=== PATIENT | female | born 1970 | race African-American/Black ===

== ENCOUNTER 2016-10-08 16:22 | Outpatient (CLI) | payer OTHER ==
[~2016-10-08] VITALS: Ht 175.3 cm; Wt 63.2 kg
[~2016-10-08 16:22] MED LIST: IRON325 M1 PO; MULTIPLE VITAMI1 CAP PO; TYSABRI20 MG/ML IV
[2016-10-08 17:00] VITALS: BP 117/66; PULSE 66; TEMP 97.5
[2016-10-08 17:07] LABS: BASO % 0.4 % (0.0-2.0); EOS # 0.1 (0.0-0.7); GRAN # 1.4 (1.4-6.5); GRAN % 30.2 % (42.2-75.2); LYMPH # 2.2 (1.2-3.4); LYMPH % 48.6 % (20.0-51.0); MEAN CELL VOLUME 85 fl (80.0-100.0); MEAN CORPUSCULAR HGB CONC 31 g/dl (33.0-37.0); MONO # 0.8 (0.1-0.6); MONO % 18.4 % (1.7-9.3); PLATELET COUNT 202 K/mm3 (130-400); RED BLOOD COUNT 3.64 M/mm3 (4.10-5.30); REDCELL DISTRIBUTION WIDTH-CV 14.4 % (11.5-14.5); WHITE BLOOD COUNT 4.5 K/mm3 (4.8-10.8)
[2016-10-08 17:08] LABS: HEMATOCRIT 30.9 % (37.0-47.0); HEMOGLOBIN 9.6 g/dl (12.5-16.0); MEAN CORPUSCULAR HEMOGLOBIN 26 pg (27.0-31.0)
[2016-10-08 17:20] LABS: ADJUSTED CALCIUM 9.2 mg/dL (8.4-10.2); ALBUMIN 3.9 gm/dL (3.5-5.0); BILIRUBIN,TOTAL 0.8 mg/dL (0.0-1.0); CALCIUM 9.1 mg/dL (8.4-10.2); CREATININE, serum 0.67 mg/dL (0.52-1.25); POTASSIUM 4.1 mmol/L (3.4-5.0); TOTAL PROTEIN 6.9 gm/dL (6.4-8.2)
== END 2016-10-08 18:54 | disposition home or self-care (01) ==
LOC: EUO 16:22
PROVIDERS: Psychiatry & Neurology Neurology
DX: G35 Multiple sclerosis (principal)
CPT/HCPCS: J2323; J7050

== ENCOUNTER 2016-11-05 16:27 | Outpatient (CLI) | payer OTHER ==
[~2016-11-05] VITALS: Ht 175.3 cm; Wt 66.3 kg
[2016-11-05 17:16] LABS: MEAN CELL VOLUME 85 fl (80.0-100.0); MEAN CORPUSCULAR HGB CONC 30 g/dl (33.0-37.0); PLATELET COUNT 250 K/mm3 (130-400); RED BLOOD COUNT 3.73 M/mm3 (4.10-5.30); REDCELL DISTRIBUTION WIDTH-CV 14.8 % (11.5-14.5); WHITE BLOOD COUNT 5.2 K/mm3 (4.8-10.8)
[2016-11-05 17:18] LABS: HEMATOCRIT 31.6 % (37.0-47.0); HEMOGLOBIN 9.5 g/dl (12.5-16.0); MEAN CORPUSCULAR HEMOGLOBIN 25 pg (27.0-31.0)
[2016-11-05 17:19] LABS: ADD PATHOLOGY DIFF REVIEW NO
[2016-11-05 17:26] LABS: ADJUSTED CALCIUM 9.2 mg/dL (8.4-10.2); ALBUMIN 4.1 gm/dL (3.5-5.0); BILIRUBIN,TOTAL 0.7 mg/dL (0.0-1.0); CALCIUM 9.3 mg/dL (8.4-10.2); CREATININE, serum 0.72 mg/dL (0.52-1.25); POTASSIUM 4.2 mmol/L (3.4-5.0); TOTAL PROTEIN 7.3 gm/dL (6.4-8.2)
[2016-11-05 17:41] VITALS: BP 122/53; PULSE 70; TEMP 98.4
[2016-11-05 17:50] LABS: BAND 4 % (0-10); EOSINOPHIL 3 % (0-4); NEUTROPHILS 30 % (42.0-75.2); PLATELET ESTIMATE NORMAL (NORMAL); TOTAL CELLS COUNTED 100
== END 2016-11-05 18:41 | disposition home or self-care (01) ==
LOC: EUO 16:27
PROVIDERS: Psychiatry & Neurology Neurology
DX: G35 Multiple sclerosis (principal)
CPT/HCPCS: J2323

== ENCOUNTER → 2016-12-05 | Outpatient (CLI) | payer OTHER ==
[~2016-12-05] VITALS: Ht 175.3 cm; Wt 64.0 kg
[2016-12-05 14:15] LABS: BASO # 0.1 (0.0-0.2); EOS # 0.1 (0.0-0.7); EOS % 1.6 % (0-4.0); GRAN # 1.6 (1.4-6.5); GRAN % 31.3 % (42.2-75.2); LYMPH # 2.5 (1.2-3.4); LYMPH % 49.9 % (20.0-51.0); MEAN CELL VOLUME 83 fl (80.0-100.0); MEAN CORPUSCULAR HGB CONC 30 g/dl (33.0-37.0); MEAN PLATELET VOLUME 10.8 fl (7.4-10.4); MONO # 0.8 (0.1-0.6); PLATELET COUNT 364 K/mm3 (130-400); RED BLOOD COUNT 4.08 M/mm3 (4.10-5.30); REDCELL DISTRIBUTION WIDTH-CV 15.1 % (11.5-14.5)
[2016-12-05 14:16] LABS: HEMATOCRIT 33.9 % (37.0-47.0); HEMOGLOBIN 10.2 g/dl (12.5-16.0); MEAN CORPUSCULAR HEMOGLOBIN 25 pg (27.0-31.0)
[2016-12-05 14:24] LABS: BILIRUBIN,TOTAL 0.8 mg/dL (0.0-1.0); CREATININE, serum 0.64 mg/dL (0.52-1.25); POTASSIUM 3.6 mmol/L (3.4-5.0); TOTAL PROTEIN 7.5 gm/dL (6.4-8.2)
[2016-12-05 14:54] VITALS: BP 111/67; PULSE 86; TEMP 97.7
== END ==
LOC: EUO 12-03 16:00
PROVIDERS: Psychiatry & Neurology Neurology
DX: K50.90 Crohn's disease, unspecified, without complications (principal); G35 Multiple sclerosis
CPT/HCPCS: J2323; J7050

== ENCOUNTER 2016-12-31 16:23 | Outpatient (CLI) | payer OTHER ==
[~2016-12-31] VITALS: Ht 175.3 cm; Wt 65.9 kg
[2016-12-31 16:45] LABS: BASO % 0.5 % (0.0-2.0); EOS # 0.1 (0.0-0.7); EOS % 1.3 % (0-4.0); GRAN # 2.5 (1.4-6.5); GRAN % 39.6 % (42.2-75.2); LYMPH # 2.6 (1.2-3.4); LYMPH % 41.1 % (20.0-51.0); MEAN CELL VOLUME 82 fl (80.0-100.0); MEAN CORPUSCULAR HGB CONC 30 g/dl (33.0-37.0); MEAN PLATELET VOLUME 11.2 fl (7.4-10.4); MONO # 1.1 (0.1-0.6); MONO % 17.3 % (1.7-9.3); PLATELET COUNT 260 K/mm3 (130-400); RED BLOOD COUNT 3.84 M/mm3 (4.10-5.30); REDCELL DISTRIBUTION WIDTH-CV 15.9 % (11.5-14.5); WHITE BLOOD COUNT 6.2 K/mm3 (4.8-10.8)
[2016-12-31 16:47] LABS: HEMATOCRIT 31.4 % (37.0-47.0); HEMOGLOBIN 9.4 g/dl (12.5-16.0); MEAN CORPUSCULAR HEMOGLOBIN 24 pg (27.0-31.0)
[2016-12-31 16:55] LABS: ADJUSTED CALCIUM 9.2 mg/dL (8.4-10.2); ALBUMIN 4.4 gm/dL (3.5-5.0); BILIRUBIN,TOTAL 0.8 mg/dL (0.0-1.0); CALCIUM 9.5 mg/dL (8.4-10.2); CREATININE, serum 0.66 mg/dL (0.52-1.25); POTASSIUM 4.2 mmol/L (3.4-5.0); TOTAL PROTEIN 7.2 gm/dL (6.4-8.2)
[2016-12-31 18:16] VITALS: BP 108/59; PULSE 54; TEMP 98.2
== END 2016-12-31 19:13 | disposition home or self-care (01) ==
LOC: EUO 16:23
PROVIDERS: Psychiatry & Neurology Neurology
DX: G35 Multiple sclerosis (principal)
CPT/HCPCS: J2323

== ENCOUNTER 2017-01-28 16:33 | Outpatient (CLI) | payer OTHER ==
[~2017-01-28] VITALS: Ht 175.3 cm; Wt 65.0 kg
[2017-01-28 17:04] LABS: ADJUSTED CALCIUM 9.2 mg/dL (8.4-10.2); ALBUMIN 3.9 gm/dL (3.5-5.0); BILIRUBIN,TOTAL 0.6 mg/dL (0.0-1.0); CALCIUM 9.1 mg/dL (8.4-10.2); CREATININE, serum 0.71 mg/dL (0.52-1.25)
[2017-01-28 17:05] LABS: BASO % 0.6 % (0.0-2.0); EOS # 0.1 (0.0-0.7); EOS % 1.3 % (0-4.0); GRAN # 1.7 (1.4-6.5); GRAN % 31.1 % (42.2-75.2); LYMPH # 2.7 (1.2-3.4); LYMPH % 49.4 % (20.0-51.0); MEAN CELL VOLUME 81 fl (80.0-100.0); MEAN CORPUSCULAR HGB CONC 30 g/dl (33.0-37.0); MEAN PLATELET VOLUME 10.7 fl (7.4-10.4); MONO # 0.9 (0.1-0.6); MONO % 17.2 % (1.7-9.3); PLATELET COUNT 310 K/mm3 (130-400); RED BLOOD COUNT 3.78 M/mm3 (4.10-5.30); REDCELL DISTRIBUTION WIDTH-CV 15.9 % (11.5-14.5); WHITE BLOOD COUNT 5.4 K/mm3 (4.8-10.8)
[2017-01-28 17:06] LABS: HEMATOCRIT 30.5 % (37.0-47.0); HEMOGLOBIN 9.2 g/dl (12.5-16.0); MEAN CORPUSCULAR HEMOGLOBIN 24 pg (27.0-31.0)
[2017-01-28 18:08] VITALS: BP 123/95; PULSE 55; TEMP 98.1
== END 2017-01-28 19:12 | disposition home or self-care (01) ==
LOC: EUO 16:33
PROVIDERS: Psychiatry & Neurology Neurology
DX: G35 Multiple sclerosis (principal)
CPT/HCPCS: J2323; J7050

== ENCOUNTER 2017-02-25 14:11 | Outpatient (CLI) | payer OTHER ==
[~2017-02-25] VITALS: Ht 175.3 cm; Wt 64.5 kg
[2017-02-25 15:14] LABS: BASO % 0.6 % (0.0-2.0); EOS # 0.1 (0.0-0.7); GRAN # 3.2 (1.4-6.5); LYMPH # 2.3 (1.2-3.4); LYMPH % 33.4 % (20.0-51.0); MEAN CELL VOLUME 83 fl (80.0-100.0); MEAN CORPUSCULAR HGB CONC 30 g/dl (33.0-37.0); MONO # 1.2 (0.1-0.6); MONO % 17.6 % (1.7-9.3); PLATELET COUNT 201 K/mm3 (130-400); RED BLOOD COUNT 4.47 M/mm3 (4.10-5.30); REDCELL DISTRIBUTION WIDTH-CV 21.2 % (11.5-14.5); WHITE BLOOD COUNT 6.9 K/mm3 (4.8-10.8)
[2017-02-25 15:23] LABS: HEMATOCRIT 36.9 % (37.0-47.0); HEMOGLOBIN 11.1 g/dl (12.5-16.0); MEAN CORPUSCULAR HEMOGLOBIN 25 pg (27.0-31.0)
[2017-02-25 15:25] LABS: ALBUMIN 4.6 gm/dL (3.5-5.0); BILIRUBIN,TOTAL 1.3 mg/dL (0.0-1.0); CALCIUM 9.5 mg/dL (8.4-10.2); CREATININE, serum 0.79 mg/dL (0.52-1.25); POTASSIUM 3.7 mmol/L (3.4-5.0)
[2017-02-25 16:01] VITALS: BP 123/74; PULSE 51; TEMP 97.9
== END 2017-02-25 17:04 | disposition home or self-care (01) ==
LOC: EUO 14:11
PROVIDERS: Psychiatry & Neurology Neurology
DX: G35 Multiple sclerosis (principal)
CPT/HCPCS: J2323

== ENCOUNTER 2017-03-26 14:09 | Outpatient (CLI) | payer OTHER ==
[2017-03-26 14:41] LABS: BASO % 0.6 % (0.0-2.0); EOS # 0.1 (0.0-0.7); GRAN # 1.8 (1.4-6.5); GRAN % 33.2 % (42.2-75.2); LYMPH # 2.7 (1.2-3.4); LYMPH % 51.9 % (20.0-51.0); MEAN CELL VOLUME 86 fl (80.0-100.0); MEAN CORPUSCULAR HGB CONC 31 g/dl (33.0-37.0); MONO # 0.7 (0.1-0.6); MONO % 13.1 % (1.7-9.3); PLATELET COUNT 173 K/mm3 (130-400); RED BLOOD COUNT 4.27 M/mm3 (4.10-5.30); REDCELL DISTRIBUTION WIDTH-CV 22.4 % (11.5-14.5); WHITE BLOOD COUNT 5.3 K/mm3 (4.8-10.8)
[2017-03-26 14:43] LABS: HEMATOCRIT 36.8 % (37.0-47.0); HEMOGLOBIN 11.5 g/dl (12.5-16.0); MEAN CORPUSCULAR HEMOGLOBIN 27 pg (27.0-31.0)
[2017-03-26 14:55] LABS: ADJUSTED CALCIUM 9.2 mg/dL (8.4-10.2); ALBUMIN 4.6 gm/dL (3.5-5.0); BILIRUBIN,TOTAL 0.9 mg/dL (0.0-1.0); CALCIUM 9.7 mg/dL (8.4-10.2); CREATININE, serum 0.73 mg/dL (0.52-1.25); POTASSIUM 3.7 mmol/L (3.4-5.0); TOTAL PROTEIN 7.7 gm/dL (6.4-8.2)
[2017-03-26 15:22] VITALS: BP 118/71; PULSE 53; TEMP 98.2
== END 2017-03-26 16:32 | disposition home or self-care (01) ==
LOC: EUO 14:09
PROVIDERS: Psychiatry & Neurology Neurology
DX: G35 Multiple sclerosis (principal); Z79.899 Other long term (current) drug therapy
CPT/HCPCS: J2323

== ENCOUNTER 2017-04-23 13:30 | Outpatient (CLI) | payer OTHER ==
[~2017-04-23] VITALS: Ht 175.3 cm; Wt 64.0 kg
[2017-04-23 14:03] LABS: BASO % 0.6 % (0.0-2.0); EOS % 0.5 % (0-4.0); GRAN # 3.1 (1.4-6.5); GRAN % 47.5 % (42.2-75.2); LYMPH # 2.5 (1.2-3.4); LYMPH % 38.1 % (20.0-51.0); MEAN CELL VOLUME 87 fl (80.0-100.0); MEAN CORPUSCULAR HGB CONC 31 g/dl (33.0-37.0); MEAN PLATELET VOLUME 11.2 fl (7.4-10.4); MONO # 0.9 (0.1-0.6); PLATELET COUNT 201 K/mm3 (130-400); RED BLOOD COUNT 4.21 M/mm3 (4.10-5.30); REDCELL DISTRIBUTION WIDTH-CV 20.1 % (11.5-14.5); WHITE BLOOD COUNT 6.6 K/mm3 (4.8-10.8)
[2017-04-23 14:04] LABS: HEMATOCRIT 36.5 % (37.0-47.0); HEMOGLOBIN 11.4 g/dl (12.5-16.0); MEAN CORPUSCULAR HEMOGLOBIN 27 pg (27.0-31.0)
[2017-04-23 14:08] LABS: ALBUMIN 4.6 gm/dL (3.5-5.0); BILIRUBIN,TOTAL 0.9 mg/dL (0.0-1.0); CALCIUM 9.5 mg/dL (8.4-10.2); CREATININE, serum 0.73 mg/dL (0.52-1.25); POTASSIUM 3.5 mmol/L (3.4-5.0); TOTAL PROTEIN 7.5 gm/dL (6.4-8.2)
[2017-04-23 14:40] VITALS: BP 119/67; PULSE 61; TEMP 98.5
== END 2017-04-23 16:00 | disposition home or self-care (01) ==
LOC: EUO 13:30
PROVIDERS: Psychiatry & Neurology Neurology
DX: G35 Multiple sclerosis (principal); Z79.899 Other long term (current) drug therapy
CPT/HCPCS: J2323; J7050

== ENCOUNTER 2017-05-23 16:31 | Outpatient (CLI) | payer OTHER ==
[~2017-05-23] VITALS: Ht 175.3 cm; Wt 63.2 kg
[2017-05-23 17:00] VITALS: BP 125/66; PULSE 63; TEMP 98.3
[2017-05-23 17:02] LABS: BASO % 0.6 % (0.0-2.0); EOS % 0.8 % (0-4.0); GRAN # 1.4 (1.4-6.5); GRAN % 28.5 % (42.2-75.2); LYMPH # 2.5 (1.2-3.4); MEAN CELL VOLUME 87 fl (80.0-100.0); MEAN CORPUSCULAR HGB CONC 32 g/dl (33.0-37.0); MEAN PLATELET VOLUME 11.8 fl (7.4-10.4); MONO % 19.9 % (1.7-9.3); PLATELET COUNT 205 K/mm3 (130-400); RED BLOOD COUNT 3.98 M/mm3 (4.10-5.30); REDCELL DISTRIBUTION WIDTH-CV 16.6 % (11.5-14.5)
[2017-05-23 17:03] LABS: HEMATOCRIT 34.7 % (37.0-47.0); HEMOGLOBIN 11.2 g/dl (12.5-16.0); MEAN CORPUSCULAR HEMOGLOBIN 28 pg (27.0-31.0)
[2017-05-23 17:13] LABS: ADJUSTED CALCIUM 8.7 mg/dL (8.4-10.2); ALBUMIN 4.4 gm/dL (3.5-5.0); CREATININE, serum 0.77 mg/dL (0.52-1.25); POTASSIUM 4.2 mmol/L (3.4-5.0); TOTAL PROTEIN 7.4 gm/dL (6.4-8.2)
== END 2017-05-23 18:21 | disposition home or self-care (01) ==
LOC: EUO 16:31
PROVIDERS: Psychiatry & Neurology Neurology
DX: G35 Multiple sclerosis (principal)
CPT/HCPCS: J2323

== ENCOUNTER → 2017-06-23 | Outpatient (CLI) | payer OTHER ==
[~2017-06-23] VITALS: Ht 175.3 cm; Wt 61.5 kg
[~2017-06-23] MED LIST changes: +VITAMIN C500 MG PO
[2017-06-23 16:36] LABS: BASO % 0.7 % (0.0-2.0); EOS % 0.9 % (0-4.0); GRAN # 1.8 (1.4-6.5); GRAN % 39.8 % (42.2-75.2); LYMPH % 43.4 % (20.0-51.0); MEAN CELL VOLUME 90 fl (80.0-100.0); MEAN CORPUSCULAR HGB CONC 31 g/dl (33.0-37.0); MEAN PLATELET VOLUME 10.8 fl (7.4-10.4); MONO # 0.7 (0.1-0.6); MONO % 14.5 % (1.7-9.3); PLATELET COUNT 305 K/mm3 (130-400); RED BLOOD COUNT 3.77 M/mm3 (4.10-5.30); REDCELL DISTRIBUTION WIDTH-CV 14.6 % (11.5-14.5); WHITE BLOOD COUNT 4.6 K/mm3 (4.8-10.8)
[2017-06-23 16:38] LABS: HEMATOCRIT 33.8 % (37.0-47.0); HEMOGLOBIN 10.6 g/dl (12.5-16.0); MEAN CORPUSCULAR HEMOGLOBIN 28 pg (27.0-31.0)
[2017-06-23 16:46] VITALS: BP 120/62; PULSE 58; TEMP 98
[2017-06-23 17:02] LABS: ADJUSTED CALCIUM 9.2 mg/dL (8.4-10.2); ALBUMIN 4.3 gm/dL (3.5-5.0); BILIRUBIN,TOTAL 0.7 mg/dL (0.0-1.0); CALCIUM 9.4 mg/dL (8.4-10.2); CREATININE, serum 0.76 mg/dL (0.52-1.25); POTASSIUM 3.8 mmol/L (3.4-5.0); TOTAL PROTEIN 7.5 gm/dL (6.4-8.2)
== END ==
LOC: EUO 16:00
PROVIDERS: Psychiatry & Neurology Neurology
DX: G35 Multiple sclerosis (principal); Z79.899 Other long term (current) drug therapy
CPT/HCPCS: J2323; J7050

== ENCOUNTER 2017-07-21 16:05 | Outpatient (CLI) | payer OTHER ==
[~2017-07-21] VITALS: Ht 175.3 cm; Wt 62.2 kg
[2017-07-21 16:32] LABS: BASO % 0.7 % (0.0-2.0); EOS % 0.5 % (0-4.0); GRAN # 2.4 (1.4-6.5); GRAN % 44.3 % (42.2-75.2); LYMPH # 2.2 (1.2-3.4); LYMPH % 39.3 % (20.0-51.0); MEAN CELL VOLUME 90 fl (80.0-100.0); MEAN CORPUSCULAR HGB CONC 31 g/dl (33.0-37.0); MEAN PLATELET VOLUME 11.2 fl (7.4-10.4); MONO # 0.8 (0.1-0.6); PLATELET COUNT 244 K/mm3 (130-400); RED BLOOD COUNT 3.71 M/mm3 (4.10-5.30); WHITE BLOOD COUNT 5.5 K/mm3 (4.8-10.8)
[2017-07-21 16:37] LABS: ALBUMIN 4.3 gm/dL (3.5-5.0); CALCIUM 9.2 mg/dL (8.4-10.2); CREATININE, serum 0.85 mg/dL (0.52-1.25); POTASSIUM 3.5 mmol/L (3.4-5.0); TOTAL PROTEIN 7.4 gm/dL (6.4-8.2)
[2017-07-21 16:49] LABS: HEMATOCRIT 33.5 % (37.0-47.0); HEMOGLOBIN 10.3 g/dl (12.5-16.0); MEAN CORPUSCULAR HEMOGLOBIN 28 pg (27.0-31.0)
[2017-07-21 17:00] VITALS: BP 116/74; PULSE 57; TEMP 97.8
== END 2017-07-21 18:16 | disposition home or self-care (01) ==
LOC: EUO 16:05
PROVIDERS: Psychiatry & Neurology Neurology
DX: G35 Multiple sclerosis (principal); Z79.899 Other long term (current) drug therapy
CPT/HCPCS: J2323; J7050

== ENCOUNTER → 2017-08-18 | Outpatient (CLI) | payer OTHER ==
[2017-08-18 16:39] LABS: BASO % 0.7 % (0.0-2.0); EOS # 0.1 (0.0-0.7); GRAN # 2.3 (1.4-6.5); GRAN % 39.1 % (42.2-75.2); LYMPH # 2.3 (1.2-3.4); LYMPH % 39.8 % (20.0-51.0); MEAN CELL VOLUME 89 fl (80.0-100.0); MEAN CORPUSCULAR HGB CONC 31 g/dl (33.0-37.0); MEAN PLATELET VOLUME 11.3 fl (7.4-10.4); MONO # 1.1 (0.1-0.6); MONO % 19.1 % (1.7-9.3); PLATELET COUNT 241 K/mm3 (130-400); RED BLOOD COUNT 3.55 M/mm3 (4.10-5.30); WHITE BLOOD COUNT 5.9 K/mm3 (4.8-10.8)
[2017-08-18 16:42] LABS: ADJUSTED CALCIUM 9.1 mg/dL (8.4-10.2); ALBUMIN 4.3 gm/dL (3.5-5.0); BILIRUBIN,TOTAL 0.8 mg/dL (0.0-1.0); CALCIUM 9.3 mg/dL (8.4-10.2); CREATININE, serum 0.76 mg/dL (0.52-1.25); POTASSIUM 4.1 mmol/L (3.4-5.0)
[2017-08-18 16:46] LABS: HEMATOCRIT 31.5 % (37.0-47.0); HEMOGLOBIN 9.6 g/dl (12.5-16.0); MEAN CORPUSCULAR HEMOGLOBIN 27 pg (27.0-31.0)
== END ==
LOC: EUO 16:00
PROVIDERS: Psychiatry & Neurology Neurology
DX: G35 Multiple sclerosis (principal)
CPT/HCPCS: J2323

== ENCOUNTER 2017-08-28 16:20 | Outpatient (CLI) | payer OTHER ==
[~2017-08-28] VITALS: Ht 175.3 cm; Wt 65.0 kg
[2017-08-28 16:58] LABS: MEAN CELL VOLUME 87 fl (80.0-100.0); MEAN CORPUSCULAR HGB CONC 31 g/dl (33.0-37.0); MEAN PLATELET VOLUME 11.9 fl (7.4-10.4); PLATELET COUNT 215 K/mm3 (130-400); WHITE BLOOD COUNT 8.3 K/mm3 (4.8-10.8)
[2017-08-28 17:04] LABS: ADD PATHOLOGY DIFF REVIEW NO; HEMATOCRIT 34.8 % (37.0-47.0); HEMOGLOBIN 10.7 g/dl (12.5-16.0); MEAN CORPUSCULAR HEMOGLOBIN 27 pg (27.0-31.0)
[2017-08-28 17:11] LABS: ADJUSTED CALCIUM 6.4 mg/dL (8.4-10.2); ALBUMIN 4.9 gm/dL (3.5-5.0); BILIRUBIN,TOTAL 0.9 mg/dL (0.0-1.0); CALCIUM 7.1 mg/dL (8.4-10.2); CREATININE, serum 0.71 mg/dL (0.52-1.25); POTASSIUM 5.7 mmol/L (3.4-5.0); TOTAL PROTEIN 7.8 gm/dL (6.4-8.2)
[2017-08-28 17:19] LABS: BAND 3 % (0-10); BASOPHIL 1 % (0-2); EOSINOPHIL 1 % (0-4); HYPOCHROMIA 1+; LYMPHOCYTE 20 % (20.0-51.0); NEUTROPHILS 60 % (42.0-75.2); PLATELET ESTIMATE NORMAL (NORMAL); TOTAL CELLS COUNTED 100
== END 2017-08-28 18:51 | disposition home or self-care (01) ==
LOC: EUO 16:20
PROVIDERS: Psychiatry & Neurology Neurology
DX: G35 Multiple sclerosis (principal); Z79.899 Other long term (current) drug therapy
CPT/HCPCS: J2323; J7050

== ENCOUNTER 2017-09-25 16:07 | Outpatient (CLI) | payer OTHER ==
[2017-09-25 16:26] LABS: BASO % 0.7 % (0.0-2.0); EOS # 0.1 (0.0-0.7); EOS % 1.1 % (0-4.0); GRAN % 35.1 % (42.2-75.2); HEMATOCRIT 35.1 % (37.0-47.0); HEMOGLOBIN 10.6 g/dl (12.5-16.0); LYMPH # 2.6 (1.2-3.4); LYMPH % 46.5 % (20.0-51.0); MEAN CELL VOLUME 86 fl (80.0-100.0); MEAN CORPUSCULAR HEMOGLOBIN 26 pg (27.0-31.0); MEAN CORPUSCULAR HGB CONC 30 g/dl (33.0-37.0); MEAN PLATELET VOLUME 11.6 fl (7.4-10.4); MONO # 0.9 (0.1-0.6); MONO % 16.1 % (1.7-9.3); PLATELET COUNT 193 K/mm3 (130-400); REDCELL DISTRIBUTION WIDTH-CV 15.6 % (11.5-14.5)
[2017-09-25 16:30] VITALS: BP 142/67; PULSE 117; TEMP 98.1
[2017-09-25 16:35] LABS: ALBUMIN 4.6 gm/dL (3.5-5.0); BILIRUBIN,TOTAL 0.7 mg/dL (0.0-1.0); CALCIUM 9.5 mg/dL (8.4-10.2); CREATININE, serum 0.77 mg/dL (0.52-1.25); POTASSIUM 4.1 mmol/L (3.4-5.0); TOTAL PROTEIN 7.7 gm/dL (6.4-8.2)
== END 2017-09-25 18:36 | disposition home or self-care (01) ==
LOC: EUO 16:07
PROVIDERS: Psychiatry & Neurology Neurology
DX: G35 Multiple sclerosis (principal)
CPT/HCPCS: J2323; J7050

== ENCOUNTER 2017-11-20 16:20 | Outpatient (CLI) | payer OTHER ==
[~2017-11-20] VITALS: Ht 175.3 cm; Wt 64.1 kg
[2017-11-20 16:45] LABS: BASO % 0.8 % (0.0-2.0); EOS # 0.1 (0.0-0.7); EOS % 1.2 % (0-4.0); GRAN # 1.8 (1.4-6.5); GRAN % 35.2 % (42.2-75.2); LYMPH # 2.4 (1.2-3.4); LYMPH % 46.6 % (20.0-51.0); MEAN CELL VOLUME 85 fl (80.0-100.0); MEAN CORPUSCULAR HGB CONC 31 g/dl (33.0-37.0); MEAN PLATELET VOLUME 11.4 fl (7.4-10.4); MONO # 0.8 (0.1-0.6); PLATELET COUNT 241 K/mm3 (130-400); RED BLOOD COUNT 3.83 M/mm3 (4.10-5.30)
[2017-11-20 16:51] LABS: ALBUMIN 4.6 gm/dL (3.5-5.0); BILIRUBIN,TOTAL 0.7 mg/dL (0.0-1.0); CALCIUM 9.3 mg/dL (8.4-10.2); CREATININE, serum 0.74 mg/dL (0.52-1.25); POTASSIUM 3.7 mmol/L (3.4-5.0); TOTAL PROTEIN 7.5 gm/dL (6.4-8.2)
[2017-11-20 17:06] LABS: HEMATOCRIT 32.4 % (37.0-47.0); HEMOGLOBIN 9.9 g/dl (12.5-16.0); MEAN CORPUSCULAR HEMOGLOBIN 26 pg (27.0-31.0)
[2017-11-20 17:28] VITALS: BP 117/62; PULSE 61; TEMP 98.2
== END 2017-11-20 18:40 | disposition home or self-care (01) ==
LOC: EUO 16:20
PROVIDERS: Psychiatry & Neurology Neurology
DX: G35 Multiple sclerosis (principal); Z79.899 Other long term (current) drug therapy
CPT/HCPCS: J2323; J7050

== ENCOUNTER → 2017-12-18 | Outpatient (CLI) | payer OTHER ==
[~2017-12-18] VITALS: Ht 175.3 cm; Wt 62.7 kg
[2017-12-18 16:54] LABS: BASO % 0.2 % (0.0-2.0); EOS # 0.1 (0.0-0.7); EOS % 1.9 % (0-4.0); GRAN # 1.2 (1.4-6.5); GRAN % 29.2 % (42.2-75.2); LYMPH # 1.8 (1.2-3.4); LYMPH % 41.7 % (20.0-51.0); MEAN CELL VOLUME 83 fl (80.0-100.0); MEAN CORPUSCULAR HGB CONC 30 g/dl (33.0-37.0); MEAN PLATELET VOLUME 10.8 fl (7.4-10.4); MONO # 1.1 (0.1-0.6); MONO % 26.8 % (1.7-9.3); PLATELET COUNT 226 K/mm3 (130-400); RED BLOOD COUNT 3.94 M/mm3 (4.10-5.30); REDCELL DISTRIBUTION WIDTH-CV 15.6 % (11.5-14.5)
[2017-12-18 17:01] LABS: HEMATOCRIT 32.7 % (37.0-47.0); HEMOGLOBIN 9.8 g/dl (12.5-16.0); MEAN CORPUSCULAR HEMOGLOBIN 25 pg (27.0-31.0)
[2017-12-18 17:04] LABS: BILIRUBIN,TOTAL 0.9 mg/dL (0.0-1.0); CALCIUM 8.8 mg/dL (8.4-10.2); CREATININE, serum 0.7 mg/dL (0.52-1.25); POTASSIUM 3.8 mmol/L (3.4-5.0); TOTAL PROTEIN 7.3 gm/dL (6.4-8.2)
== END ==
LOC: EUO 16:00
PROVIDERS: Psychiatry & Neurology Neurology
DX: G35 Multiple sclerosis (principal)
CPT/HCPCS: J2323; J7050

== ENCOUNTER 2018-01-15 16:11 | Outpatient (CLI) | payer OTHER ==
[2018-01-15 16:27] VITALS: BP 115/63; PULSE 55; TEMP 97.9
[2018-01-15 16:40] LABS: BASO % 0.7 % (0.0-2.0); EOS # 0.1 (0.0-0.7); EOS % 1.8 % (0-4.0); GRAN # 2.1 (1.4-6.5); GRAN % 34.2 % (42.2-75.2); HEMATOCRIT 32.4 % (37.0-47.0); HEMOGLOBIN 9.8 g/dl (12.5-16.0); LYMPH # 2.8 (1.2-3.4); LYMPH % 46.6 % (20.0-51.0); MEAN CELL VOLUME 83 fl (80.0-100.0); MEAN CORPUSCULAR HEMOGLOBIN 25 pg (27.0-31.0); MEAN CORPUSCULAR HGB CONC 30 g/dl (33.0-37.0); MEAN PLATELET VOLUME 13.4 fl (7.4-10.4); MONO % 16.4 % (1.7-9.3); PLATELET COUNT 266 K/mm3 (130-400); RED BLOOD COUNT 3.92 M/mm3 (4.10-5.30); REDCELL DISTRIBUTION WIDTH-CV 17.4 % (11.5-14.5)
[2018-01-15 16:58] LABS: ALBUMIN 4.4 gm/dL (3.5-5.0); BILIRUBIN,TOTAL 0.6 mg/dL (0.0-1.0); CALCIUM 9.2 mg/dL (8.4-10.2); CREATININE, serum 0.73 mg/dL (0.52-1.25); POTASSIUM 4.3 mmol/L (3.4-5.0)
== END 2018-01-15 18:02 | disposition home or self-care (01) ==
LOC: EUO 16:11
PROVIDERS: Psychiatry & Neurology Neurology
DX: G35 Multiple sclerosis (principal)
CPT/HCPCS: J2323

== ENCOUNTER → 2018-02-12 | Outpatient (CLI) | payer OTHER ==
[~2018-02-12] VITALS: Ht 175.3 cm; Wt 64.5 kg
[2018-02-12 16:58] LABS: BASO % 0.7 % (0.0-2.0); EOS # 0.1 (0.0-0.7); EOS % 1.8 % (0-4.0); GRAN # 2.3 (1.4-6.5); HEMOGLOBIN 11.6 g/dl (12.5-16.0); LYMPH # 2.7 (1.2-3.4); LYMPH % 43.8 % (20.0-51.0); MEAN CELL VOLUME 87 fl (80.0-100.0); MEAN CORPUSCULAR HEMOGLOBIN 27 pg (27.0-31.0); MEAN CORPUSCULAR HGB CONC 31 g/dl (33.0-37.0); MEAN PLATELET VOLUME 10.9 fl (7.4-10.4); MONO # 0.9 (0.1-0.6); PLATELET COUNT 248 K/mm3 (130-400); RED BLOOD COUNT 4.25 M/mm3 (4.10-5.30); REDCELL DISTRIBUTION WIDTH-CV 21.1 % (11.5-14.5)
[2018-02-12 17:08] LABS: ALBUMIN 4.3 gm/dL (3.5-5.0); BILIRUBIN,TOTAL 0.8 mg/dL (0.0-1.0); CALCIUM 9.7 mg/dL (8.4-10.2); CREATININE, serum 0.76 mg/dL (0.52-1.25); POTASSIUM 3.9 mmol/L (3.4-5.0); TOTAL PROTEIN 8.4 gm/dL (6.4-8.2)
[2018-02-12 18:03] VITALS: BP 117/68; PULSE 53; TEMP 98.2
== END ==
LOC: EUO 16:00
PROVIDERS: Psychiatry & Neurology Neurology
DX: G35 Multiple sclerosis (principal)
CPT/HCPCS: J2323; J7050

== ENCOUNTER 2018-03-12 15:57 | Outpatient (CLI) | payer OTHER ==
[2018-03-12 16:00] VITALS: BP 105/52; PULSE 52; TEMP 97.6
[2018-03-12 16:18] LABS: BASO % 0.6 % (0.0-2.0); EOS # 0.1 (0.0-0.7); EOS % 1.9 % (0-4.0); GRAN # 1.4 (1.4-6.5); GRAN % 28.3 % (42.2-75.2); HEMATOCRIT 40.7 % (37.0-47.0); HEMOGLOBIN 13.2 g/dl (12.5-16.0); LYMPH # 2.7 (1.2-3.4); LYMPH % 55.6 % (20.0-51.0); MEAN CELL VOLUME 88 fl (80.0-100.0); MEAN CORPUSCULAR HEMOGLOBIN 29 pg (27.0-31.0); MEAN CORPUSCULAR HGB CONC 32 g/dl (33.0-37.0); MEAN PLATELET VOLUME 11.5 fl (7.4-10.4); MONO # 0.6 (0.1-0.6); MONO % 13.2 % (1.7-9.3); PLATELET COUNT 197 K/mm3 (130-400); RED BLOOD COUNT 4.63 M/mm3 (4.10-5.30); REDCELL DISTRIBUTION WIDTH-CV 20.9 % (11.5-14.5)
[2018-03-12 16:24] LABS: ALBUMIN 4.7 gm/dL (3.5-5.0); CALCIUM 9.5 mg/dL (8.4-10.2); CREATININE, serum 0.66 mg/dL (0.52-1.25); POTASSIUM 3.9 mmol/L (3.4-5.0)
== END 2018-03-12 18:07 | disposition home or self-care (01) ==
LOC: EUO 15:57
PROVIDERS: Psychiatry & Neurology Neurology
DX: G35 Multiple sclerosis (principal)
CPT/HCPCS: J2323; J7050

== ENCOUNTER → 2018-04-09 | Outpatient (CLI) | payer OTHER ==
[~2018-04-09] VITALS: Ht 175.3 cm; Wt 46.4 kg
[2018-04-09 16:33] VITALS: BP 112/62; PULSE 66; TEMP 97.8
[2018-04-09 17:37] LABS: BASO % 0.6 % (0.0-2.0); EOS # 0.1 (0.0-0.7); GRAN # 1.4 (1.4-6.5); GRAN % 28.5 % (42.2-75.2); HEMATOCRIT 39.5 % (37.0-47.0); HEMOGLOBIN 12.9 g/dl (12.5-16.0); LYMPH # 2.6 (1.2-3.4); LYMPH % 53.6 % (20.0-51.0); MEAN CELL VOLUME 92 fl (80.0-100.0); MEAN CORPUSCULAR HEMOGLOBIN 30 pg (27.0-31.0); MEAN CORPUSCULAR HGB CONC 33 g/dl (33.0-37.0); MEAN PLATELET VOLUME 11.4 fl (7.4-10.4); MONO # 0.8 (0.1-0.6); MONO % 16.1 % (1.7-9.3); PLATELET COUNT 187 K/mm3 (130-400); RED BLOOD COUNT 4.28 M/mm3 (4.10-5.30); REDCELL DISTRIBUTION WIDTH-CV 17.9 % (11.5-14.5)
[2018-04-09 17:49] LABS: ALBUMIN 4.5 gm/dL (3.5-5.0); CALCIUM 9.5 mg/dL (8.4-10.2); CREATININE, serum 0.8 mg/dL (0.52-1.25); POTASSIUM 3.9 mmol/L (3.4-5.0); TOTAL PROTEIN 7.7 gm/dL (6.4-8.2)
== END ==
LOC: EUO 16:00
PROVIDERS: Psychiatry & Neurology Neurology
DX: G35 Multiple sclerosis (principal); Z79.899 Other long term (current) drug therapy
CPT/HCPCS: J2323; J7050

== ENCOUNTER 2018-05-07 16:11 | Outpatient (CLI) | payer OTHER ==
[2018-05-07 16:31] LABS: BASO % 0.6 % (0.0-2.0); EOS # 0.1 (0.0-0.7); EOS % 1.6 % (0-4.0); GRAN # 1.5 (1.4-6.5); GRAN % 29.9 % (42.2-75.2); HEMATOCRIT 37.4 % (37.0-47.0); HEMOGLOBIN 12.5 g/dl (12.5-16.0); LYMPH # 2.7 (1.2-3.4); LYMPH % 53.8 % (20.0-51.0); MEAN CELL VOLUME 94 fl (80.0-100.0); MEAN CORPUSCULAR HEMOGLOBIN 32 pg (27.0-31.0); MEAN CORPUSCULAR HGB CONC 33 g/dl (33.0-37.0); MEAN PLATELET VOLUME 11.1 fl (7.4-10.4); MONO # 0.7 (0.1-0.6); MONO % 13.7 % (1.7-9.3); PLATELET COUNT 198 K/mm3 (130-400); RED BLOOD COUNT 3.97 M/mm3 (4.10-5.30); REDCELL DISTRIBUTION WIDTH-CV 14.7 % (11.5-14.5)
[2018-05-07 16:46] LABS: ALBUMIN 4.4 gm/dL (3.5-5.0); BILIRUBIN,TOTAL 1.3 mg/dL (0.0-1.0); CALCIUM 9.2 mg/dL (8.4-10.2); CREATININE, serum 0.67 mg/dL (0.52-1.25); POTASSIUM 3.6 mmol/L (3.4-5.0); TOTAL PROTEIN 7.6 gm/dL (6.4-8.2)
== END 2018-05-07 18:44 | disposition home or self-care (01) ==
LOC: EUO 16:11
PROVIDERS: Psychiatry & Neurology Neurology
DX: G35 Multiple sclerosis (principal); Z79.899 Other long term (current) drug therapy
CPT/HCPCS: J2323; J7050

== ENCOUNTER 2018-06-04 16:24 | Outpatient (CLI) | payer OTHER ==
[~2018-06-04] VITALS: Ht 175.3 cm; Wt 62.8 kg
[2018-06-04 16:57] LABS: BASO % 0.7 % (0.0-2.0); EOS # 0.1 (0.0-0.7); EOS % 1.6 % (0-4.0); GRAN # 1.3 (1.4-6.5); GRAN % 29.4 % (42.2-75.2); LYMPH # 2.4 (1.2-3.4); LYMPH % 55.3 % (20.0-51.0); MEAN CELL VOLUME 101 fl (80.0-100.0); MEAN CORPUSCULAR HGB CONC 32 g/dl (33.0-37.0); MEAN PLATELET VOLUME 11.2 fl (7.4-10.4); MONO # 0.5 (0.1-0.6); MONO % 12.5 % (1.7-9.3); PLATELET COUNT 156 K/mm3 (130-400); RED BLOOD COUNT 2.88 M/mm3 (4.10-5.30); REDCELL DISTRIBUTION WIDTH-CV 13.3 % (11.5-14.5)
[2018-06-04 17:02] LABS: ALBUMIN 4.1 gm/dL (3.5-5.0); CALCIUM 9.1 mg/dL (8.4-10.2); CREATININE, serum 0.71 mg/dL (0.52-1.25); POTASSIUM 4.2 mmol/L (3.4-5.0); TOTAL PROTEIN 7.3 gm/dL (6.4-8.2)
[2018-06-04 17:10] LABS: HEMATOCRIT 29.1 % (37.0-47.0); HEMOGLOBIN 9.3 g/dl (12.5-16.0); MEAN CORPUSCULAR HEMOGLOBIN 32 pg (27.0-31.0)
[2018-06-04 17:34] VITALS: BP 124/62; PULSE 58; TEMP 97.5
== END 2018-06-04 19:30 | disposition home or self-care (01) ==
LOC: EUO 16:24
PROVIDERS: Psychiatry & Neurology Neurology
DX: G35 Multiple sclerosis (principal); Z79.899 Other long term (current) drug therapy
CPT/HCPCS: J2323; J7050

== ENCOUNTER 2018-07-01 16:31 | Outpatient (CLI) | payer OTHER ==
[~2018-07-01] VITALS: Ht 175.3 cm; Wt 62.3 kg
[2018-07-01 16:59] LABS: BASO % 0.2 % (0.0-2.0); EOS # 0.1 (0.0-0.7); EOS % 1.1 % (0-4.0); GRAN # 2.4 (1.4-6.5); GRAN % 42.2 % (42.2-75.2); HEMATOCRIT 39.1 % (37.0-47.0); LYMPH # 2.4 (1.2-3.4); LYMPH % 43.6 % (20.0-51.0); MEAN CELL VOLUME 96 fl (80.0-100.0); MEAN CORPUSCULAR HEMOGLOBIN 32 pg (27.0-31.0); MEAN CORPUSCULAR HGB CONC 33 g/dl (33.0-37.0); MEAN PLATELET VOLUME 11.2 fl (7.4-10.4); MONO # 0.7 (0.1-0.6); MONO % 12.7 % (1.7-9.3); PLATELET COUNT 190 K/mm3 (130-400); RED BLOOD COUNT 4.08 M/mm3 (4.10-5.30); REDCELL DISTRIBUTION WIDTH-CV 12.9 % (11.5-14.5)
[2018-07-01 17:07] LABS: ALBUMIN 4.5 gm/dL (3.5-5.0); BILIRUBIN,TOTAL 1.2 mg/dL (0.0-1.0); CALCIUM 9.3 mg/dL (8.4-10.2); CREATININE, serum 0.71 mg/dL (0.52-1.25); POTASSIUM 4.2 mmol/L (3.4-5.0)
[2018-07-01 17:20] VITALS: BP 137/78; PULSE 52; TEMP 97.8
== END 2018-07-01 18:55 | disposition home or self-care (01) ==
LOC: EUO 16:31
PROVIDERS: Psychiatry & Neurology Neurology
DX: G35 Multiple sclerosis (principal); Z79.899 Other long term (current) drug therapy
CPT/HCPCS: J2323; J7050

== ENCOUNTER 2018-07-30 16:08 | Outpatient (CLI) | payer OTHER ==
[~2018-07-30] VITALS: Ht 175.3 cm; Wt 61.2 kg
[2018-07-30 16:42] LABS: BASO % 0.4 % (0.0-2.0); EOS # 0.1 (0.0-0.7); EOS % 1.3 % (0-4.0); GRAN # 1.6 (1.4-6.5); GRAN % 34.2 % (42.2-75.2); HEMATOCRIT 36.4 % (37.0-47.0); LYMPH # 2.3 (1.2-3.4); LYMPH % 49.3 % (20.0-51.0); MEAN CELL VOLUME 99 fl (80.0-100.0); MEAN CORPUSCULAR HEMOGLOBIN 33 pg (27.0-31.0); MEAN CORPUSCULAR HGB CONC 33 g/dl (33.0-37.0); MEAN PLATELET VOLUME 11.2 fl (7.4-10.4); MONO # 0.7 (0.1-0.6); MONO % 14.6 % (1.7-9.3); PLATELET COUNT 192 K/mm3 (130-400); RED BLOOD COUNT 3.69 M/mm3 (4.10-5.30); REDCELL DISTRIBUTION WIDTH-CV 12.9 % (11.5-14.5)
[2018-07-30 17:00] VITALS: BP 124/83; PULSE 51; TEMP 98.2
[2018-07-30 17:15] LABS: ALBUMIN 4.2 gm/dL (3.5-5.0); BILIRUBIN,TOTAL 0.9 mg/dL (0.0-1.0); CREATININE, serum 0.67 mg/dL (0.52-1.25); POTASSIUM 4.1 mmol/L (3.4-5.0); TOTAL PROTEIN 7.1 gm/dL (6.4-8.2)
== END 2018-07-30 18:30 | disposition home or self-care (01) ==
LOC: EUO 16:08
PROVIDERS: Psychiatry & Neurology Neurology
DX: G35 Multiple sclerosis (principal); Z79.899 Other long term (current) drug therapy
CPT/HCPCS: J2323; J7050

== ENCOUNTER 2018-08-27 16:30 | Outpatient (CLI) | payer OTHER ==
[~2018-08-27] VITALS: Ht 175.3 cm; Wt 64.9 kg
[2018-08-27 17:10] LABS: BASO % 0.6 % (0.0-2.0); EOS # 0.1 (0.0-0.7); EOS % 1.5 % (0-4.0); GRAN # 1.8 (1.4-6.5); GRAN % 37.8 % (42.2-75.2); HEMOGLOBIN 11.9 g/dl (12.5-16.0); LYMPH # 2.1 (1.2-3.4); LYMPH % 44.6 % (20.0-51.0); MEAN CELL VOLUME 96 fl (80.0-100.0); MEAN CORPUSCULAR HEMOGLOBIN 32 pg (27.0-31.0); MEAN CORPUSCULAR HGB CONC 33 g/dl (33.0-37.0); MEAN PLATELET VOLUME 11.3 fl (7.4-10.4); MONO # 0.7 (0.1-0.6); MONO % 15.1 % (1.7-9.3); PLATELET COUNT 189 K/mm3 (130-400); RED BLOOD COUNT 3.74 M/mm3 (4.10-5.30); REDCELL DISTRIBUTION WIDTH-CV 13.1 % (11.5-14.5)
[2018-08-27 17:21] LABS: BILIRUBIN,TOTAL 0.8 mg/dL (0.0-1.0); CALCIUM 9.2 mg/dL (8.4-10.2); CREATININE, serum 0.71 mg/dL (0.52-1.25); POTASSIUM 3.9 mmol/L (3.4-5.0)
[2018-08-27 17:44] VITALS: BP 127/46; PULSE 65; TEMP 97.9
== END 2018-08-27 19:05 | disposition home or self-care (01) ==
LOC: EUO 16:30
PROVIDERS: Psychiatry & Neurology Neurology
DX: G35 Multiple sclerosis (principal); Z79.899 Other long term (current) drug therapy
CPT/HCPCS: J2323; J7050

== ENCOUNTER 2018-09-24 15:47 | Outpatient (CLI) | payer OTHER ==
[~2018-09-24] VITALS: Ht 175.3 cm; Wt 66.1 kg
[2018-09-24 16:08] LABS: BASO % 0.5 % (0.0-2.0); EOS # 0.1 (0.0-0.7); EOS % 1.6 % (0-4.0); GRAN # 2.3 (1.4-6.5); GRAN % 40.5 % (42.2-75.2); HEMATOCRIT 42.1 % (37.0-47.0); HEMOGLOBIN 13.7 g/dl (12.5-16.0); LYMPH # 2.5 (1.2-3.4); LYMPH % 43.5 % (20.0-51.0); MEAN CELL VOLUME 96 fl (80.0-100.0); MEAN CORPUSCULAR HEMOGLOBIN 31 pg (27.0-31.0); MEAN CORPUSCULAR HGB CONC 33 g/dl (33.0-37.0); MEAN PLATELET VOLUME 11.9 fl (7.4-10.4); MONO # 0.8 (0.1-0.6); MONO % 13.4 % (1.7-9.3); PLATELET COUNT 199 K/mm3 (130-400); RED BLOOD COUNT 4.37 M/mm3 (4.10-5.30); REDCELL DISTRIBUTION WIDTH-CV 13.7 % (11.5-14.5)
[2018-09-24 16:16] VITALS: BP 119/73; PULSE 58; TEMP 98
[2018-09-24 16:55] LABS: ALBUMIN 4.1 gm/dL (3.5-5.0); BILIRUBIN,TOTAL 0.9 mg/dL (0.0-1.0); CREATININE, serum 0.65 mg/dL (0.52-1.25)
== END 2018-09-24 18:18 | disposition home or self-care (01) ==
LOC: EUO 15:47
PROVIDERS: Psychiatry & Neurology Neurology
DX: G35 Multiple sclerosis (principal); Z79.899 Other long term (current) drug therapy
CPT/HCPCS: J2323; J7050

== ENCOUNTER 2018-10-22 16:16 | Outpatient (CLI) | payer OTHER ==
[~2018-10-22] VITALS: Ht 175.3 cm; Wt 69.1 kg
[2018-10-22 16:45] LABS: BASO % 0.7 % (0.0-2.0); EOS # 0.1 (0.0-0.7); EOS % 1.5 % (0-4.0); GRAN % 36.1 % (42.2-75.2); HEMOGLOBIN 11.9 g/dl (12.5-16.0); LYMPH # 2.4 (1.2-3.4); LYMPH % 42.9 % (20.0-51.0); MEAN CELL VOLUME 96 fl (80.0-100.0); MEAN CORPUSCULAR HEMOGLOBIN 31 pg (27.0-31.0); MEAN CORPUSCULAR HGB CONC 33 g/dl (33.0-37.0); MEAN PLATELET VOLUME 11.1 fl (7.4-10.4); MONO % 18.6 % (1.7-9.3); PLATELET COUNT 206 K/mm3 (130-400); RED BLOOD COUNT 3.82 M/mm3 (4.10-5.30); REDCELL DISTRIBUTION WIDTH-CV 13.4 % (11.5-14.5)
[2018-10-22 16:47] LABS: HEMATOCRIT 36.5 % (37.0-47.0)
[2018-10-22 16:56] LABS: BILIRUBIN,TOTAL 0.8 mg/dL (0.0-1.0); CALCIUM 8.9 mg/dL (8.4-10.2); CREATININE, serum 0.67 mg/dL (0.52-1.25); POTASSIUM 4.2 mmol/L (3.4-5.0); TOTAL PROTEIN 7.1 gm/dL (6.4-8.2)
[2018-10-22 18:00] VITALS: BP 121/69; PULSE 53; TEMP 97.7
== END 2018-10-22 18:53 | disposition home or self-care (01) ==
LOC: EUO 16:16
PROVIDERS: Psychiatry & Neurology Neurology
DX: G35 Multiple sclerosis (principal); Z79.899 Other long term (current) drug therapy
CPT/HCPCS: J2323; J7050

== ENCOUNTER 2018-11-23 16:05 | Outpatient (CLI) | payer OTHER ==
[~2018-11-23] VITALS: Ht 175.3 cm; Wt 68.5 kg
[2018-11-23 16:40] LABS: HEMATOCRIT 37.4 % (37.0-47.0); HEMOGLOBIN 11.9 g/dl (12.5-16.0); MEAN CELL VOLUME 95 fl (80.0-100.0); MEAN CORPUSCULAR HEMOGLOBIN 30 pg (27.0-31.0); MEAN CORPUSCULAR HGB CONC 32 g/dl (33.0-37.0); MEAN PLATELET VOLUME 10.9 fl (7.4-10.4); PLATELET COUNT 202 K/mm3 (130-400); RED BLOOD COUNT 3.93 M/mm3 (4.10-5.30); REDCELL DISTRIBUTION WIDTH-CV 13.2 % (11.5-14.5)
[2018-11-23 16:49] LABS: ALBUMIN 4.1 gm/dL (3.5-5.0); BILIRUBIN,TOTAL 0.5 mg/dL (0.0-1.0); CALCIUM 9.2 mg/dL (8.4-10.2); CREATININE, serum 0.69 mg/dL (0.52-1.25); POTASSIUM 3.7 mmol/L (3.4-5.0); TOTAL PROTEIN 7.3 gm/dL (6.4-8.2)
[2018-11-23 17:10] LABS: EOSINOPHIL 5 % (0-4); LYMPHOCYTE 28 % (20.0-51.0); NEUTROPHILS 36 % (42.0-75.2); NUCLEATED RED BLOOD CELL 2 (0-6)
[2018-11-23 17:11] LABS: PLATELET ESTIMATE NORMAL (NORMAL)
[2018-11-23 17:35] VITALS: BP 125/67; PULSE 64; TEMP 97.8
== END 2018-11-23 18:46 | disposition home or self-care (01) ==
LOC: EUO 16:05
PROVIDERS: Psychiatry & Neurology Neurology
DX: G35 Multiple sclerosis (principal); Z79.899 Other long term (current) drug therapy
CPT/HCPCS: J2323; J7050

== ENCOUNTER 2018-12-21 16:18 | Outpatient (CLI) | payer OTHER ==
[2018-12-21 16:51] LABS: BASO % 0.5 % (0.0-2.0); EOS % 0.5 % (0-4.0); GRAN # 3.9 (1.4-6.5); GRAN % 51.8 % (42.2-75.2); LYMPH # 2.3 (1.2-3.4); LYMPH % 30.2 % (20.0-51.0); MEAN CELL VOLUME 91 fl (80.0-100.0); MEAN CORPUSCULAR HEMOGLOBIN 30 pg (27.0-31.0); MEAN CORPUSCULAR HGB CONC 32 g/dl (33.0-37.0); MONO # 1.2 (0.1-0.6); MONO % 16.6 % (1.7-9.3); PLATELET COUNT 190 K/mm3 (130-400); RED BLOOD COUNT 3.72 M/mm3 (4.10-5.30); REDCELL DISTRIBUTION WIDTH-CV 13.2 % (11.5-14.5)
[2018-12-21 16:52] LABS: HEMATOCRIT 33.9 % (37.0-47.0)
[2018-12-21 17:17] LABS: ALBUMIN 4.3 gm/dL (3.5-5.0); BILIRUBIN,TOTAL 0.9 mg/dL (0.0-1.0); CALCIUM 9.3 mg/dL (8.4-10.2); CREATININE, serum 0.75 (0.52-1.25); POTASSIUM 3.8 mmol/L (3.4-5.0); TOTAL PROTEIN 7.4 gm/dL (6.4-8.2)
[2018-12-21 17:52] VITALS: BP 142/77; PULSE 50; TEMP 97.6
== END 2018-12-21 18:52 | disposition home or self-care (01) ==
LOC: EUO 16:18
PROVIDERS: Psychiatry & Neurology Neurology
DX: G35 Multiple sclerosis (principal); Z79.899 Other long term (current) drug therapy
CPT/HCPCS: J2323

== ENCOUNTER 2019-01-18 16:11 | Outpatient (CLI) | payer OTHER ==
[~2019-01-18] VITALS: Ht 175.3 cm; Wt 67.3 kg
[2019-01-18 16:36] LABS: BASO % 0.4 % (0.0-2.0); EOS % 0.6 % (0-4.0); GRAN # 3.2 (1.4-6.5); GRAN % 45.9 % (42.2-75.2); HEMOGLOBIN 10.9 g/dl (12.5-16.0); LYMPH # 2.6 (1.2-3.4); LYMPH % 36.3 % (20.0-51.0); MEAN CELL VOLUME 91 fl (80.0-100.0); MEAN CORPUSCULAR HEMOGLOBIN 29 pg (27.0-31.0); MEAN CORPUSCULAR HGB CONC 32 g/dl (33.0-37.0); MEAN PLATELET VOLUME 11.3 fl (7.4-10.4); MONO # 1.2 (0.1-0.6); MONO % 16.4 % (1.7-9.3); PLATELET COUNT 195 K/mm3 (130-400); REDCELL DISTRIBUTION WIDTH-CV 13.5 % (11.5-14.5)
[2019-01-18 16:39] LABS: HEMATOCRIT 34.5 % (37.0-47.0)
[2019-01-18 16:44] LABS: ALBUMIN 4.3 gm/dL (3.5-5.0); BILIRUBIN,TOTAL 0.6 mg/dL (0.0-1.0); CALCIUM 9.2 mg/dL (8.4-10.2); CREATININE, serum 0.72 (0.52-1.25); POTASSIUM 3.3 mmol/L (3.4-5.0); TOTAL PROTEIN 7.6 gm/dL (6.4-8.2)
[2019-01-18 17:09] VITALS: BP 123/70; PULSE 57; TEMP 98.1
== END 2019-01-18 18:06 | disposition home or self-care (01) ==
LOC: EUO 16:11
PROVIDERS: Psychiatry & Neurology Neurology
DX: G35 Multiple sclerosis (principal); Z79.899 Other long term (current) drug therapy
CPT/HCPCS: J2323

== ENCOUNTER 2019-03-17 10:32 | Outpatient (CLI) | payer OTHER ==
[~2019-03-17] VITALS: Ht 175.3 cm; Wt 66.8 kg
[2019-03-17 10:59] LABS: BASO % 0.7 % (0.0-2.0); EOS # 0.1 (0.0-0.7); EOS % 1.5 % (0-4.0); GRAN # 1.3 (1.4-6.5); GRAN % 32.4 % (42.2-75.2); HEMOGLOBIN 10.7 g/dl (12.5-16.0); LYMPH % 48.8 % (20.0-51.0); MEAN CELL VOLUME 87 fl (80.0-100.0); MEAN CORPUSCULAR HEMOGLOBIN 27 pg (27.0-31.0); MEAN CORPUSCULAR HGB CONC 31 g/dl (33.0-37.0); MEAN PLATELET VOLUME 11.1 fl (7.4-10.4); MONO # 0.7 (0.1-0.6); MONO % 16.4 % (1.7-9.3); PLATELET COUNT 214 K/mm3 (130-400); RED BLOOD COUNT 4.02 M/mm3 (4.10-5.30); REDCELL DISTRIBUTION WIDTH-CV 15.1 % (11.5-14.5)
[2019-03-17 11:05] LABS: HEMATOCRIT 34.8 % (37.0-47.0)
[2019-03-17 11:10] LABS: ALBUMIN 3.9 gm/dL (3.5-5.0); BILIRUBIN,TOTAL 1.3 mg/dL (0.0-1.0); CALCIUM 9.1 mg/dL (8.4-10.2); CREATININE, serum 0.61 (0.52-1.25); POTASSIUM 3.8 mmol/L (3.4-5.0); TOTAL PROTEIN 7.1 gm/dL (6.4-8.2)
[2019-03-17 11:27] VITALS: BP 136/66; PULSE 54; TEMP 97.9
== END 2019-03-17 12:50 | disposition home or self-care (01) ==
LOC: EUO 10:32
PROVIDERS: Psychiatry & Neurology Neurology
DX: G35 Multiple sclerosis (principal); Z79.899 Other long term (current) drug therapy
CPT/HCPCS: J2323

== ENCOUNTER 2019-04-14 14:26 | Outpatient (CLI) | payer OTHER ==
[~2019-04-14] VITALS: Ht 175.3 cm; Wt 67.3 kg
[2019-04-14] MEDS ORDERED: AMOXICILLIN 8751 TAB PO (15:02)
[2019-04-14] MEDS ORDERED: [UNRECOGNIZED DRUG - OTHER] IM (15:03)
[2019-04-14] MEDS ORDERED: RABIES IMMUNE GLOBULIN IM (15:03)
[2019-04-14 15:09] LABS: ALBUMIN 3.9 gm/dL (3.5-5.0); BILIRUBIN,TOTAL 0.6 mg/dL (0.0-1.0); CALCIUM 9.1 mg/dL (8.4-10.2); CREATININE, serum 0.73 (0.52-1.25); POTASSIUM 3.9 mmol/L (3.4-5.0); TOTAL PROTEIN 6.9 gm/dL (6.4-8.2)
[2019-04-14 15:13] LABS: BASO % 0.7 % (0.0-2.0); EOS # 0.1 (0.0-0.7); EOS % 1.4 % (0-4.0); GRAN # 1.3 (1.4-6.5); GRAN % 31.9 % (42.2-75.2); HEMOGLOBIN 10.5 g/dl (12.5-16.0); LYMPH # 1.9 (1.2-3.4); LYMPH % 46.1 % (20.0-51.0); MEAN CELL VOLUME 86 fl (80.0-100.0); MEAN CORPUSCULAR HEMOGLOBIN 27 pg (27.0-31.0); MEAN CORPUSCULAR HGB CONC 31 g/dl (33.0-37.0); MEAN PLATELET VOLUME 11.2 fl (7.4-10.4); MONO # 0.8 (0.1-0.6); MONO % 19.7 % (1.7-9.3); PLATELET COUNT 214 K/mm3 (130-400); RED BLOOD COUNT 3.95 M/mm3 (4.10-5.30); REDCELL DISTRIBUTION WIDTH-CV 16.8 % (11.5-14.5)
[2019-04-14 15:22] VITALS: BP 118/76; PULSE 54; TEMP 98.3
== END 2019-04-14 19:00 ==
LOC: EUO 14:26
PROVIDERS: Psychiatry & Neurology Neurology
DX: G35 Multiple sclerosis (principal); Z79.899 Other long term (current) drug therapy
CPT/HCPCS: J2323

== ENCOUNTER 2019-05-11 16:12 | Outpatient (CLI) | payer OTHER ==
[~2019-05-11] VITALS: Ht 175.3 cm; Wt 65.7 kg
[~2019-05-11 16:12] MED LIST changes: +AMOXICILLIN 8751 TAB PO; +RABIES IMMUNE GLOBULIN IM; +[UNRECOGNIZED DRUG - OTHER] IM
[2019-05-11 16:39] LABS: BASO % 0.6 % (0.0-2.0); EOS # 0.1 (0.0-0.7); EOS % 1.4 % (0-4.0); GRAN # 1.7 (1.4-6.5); GRAN % 33.9 % (42.2-75.2); LYMPH # 2.4 (1.2-3.4); LYMPH % 48.2 % (20.0-51.0); MEAN CELL VOLUME 87 fl (80.0-100.0); MEAN CORPUSCULAR HGB CONC 31 g/dl (33.0-37.0); MEAN PLATELET VOLUME 11.5 fl (7.4-10.4); MONO # 0.8 (0.1-0.6); MONO % 15.7 % (1.7-9.3); PLATELET COUNT 229 K/mm3 (130-400); REDCELL DISTRIBUTION WIDTH-CV 17.1 % (11.5-14.5)
[2019-05-11 16:42] LABS: HEMOGLOBIN 9.8 g/dl (12.5-16.0); MEAN CORPUSCULAR HEMOGLOBIN 26 pg (27.0-31.0)
[2019-05-11 16:48] LABS: ALBUMIN 4.2 gm/dL (3.5-5.0); BILIRUBIN,TOTAL 0.8 mg/dL (0.0-1.0); CALCIUM 9.2 mg/dL (8.4-10.2); CREATININE, serum 0.72 (0.52-1.25); POTASSIUM 3.9 mmol/L (3.4-5.0); TOTAL PROTEIN 7.1 gm/dL (6.4-8.2)
[2019-05-11 17:08] VITALS: BP 126/58; PULSE 60; TEMP 98.1
== END 2019-05-11 18:15 | disposition home or self-care (01) ==
LOC: EUO 16:12
PROVIDERS: Psychiatry & Neurology Neurology
DX: G35 Multiple sclerosis (principal); Z79.899 Other long term (current) drug therapy
CPT/HCPCS: J2323; J7050

== ENCOUNTER 2019-06-08 16:12 | Outpatient (CLI) | payer OTHER ==
[~2019-06-08] VITALS: Ht 175.3 cm; Wt 65.5 kg
[2019-06-08 16:40] LABS: BASO % 0.5 % (0.0-2.0); EOS # 0.1 (0.0-0.7); EOS % 1.1 % (0-4.0); GRAN # 2.1 (1.4-6.5); GRAN % 38.2 % (42.2-75.2); HEMATOCRIT 33.6 % (37.0-47.0); HEMOGLOBIN 10.4 g/dl (12.5-16.0); LYMPH # 2.3 (1.2-3.4); LYMPH % 41.8 % (20.0-51.0); MEAN CELL VOLUME 88 fl (80.0-100.0); MEAN CORPUSCULAR HEMOGLOBIN 27 pg (27.0-31.0); MEAN CORPUSCULAR HGB CONC 31 g/dl (33.0-37.0); MEAN PLATELET VOLUME 11.4 fl (7.4-10.4); MONO % 18.2 % (1.7-9.3); PLATELET COUNT 225 K/mm3 (130-400); REDCELL DISTRIBUTION WIDTH-CV 17.9 % (11.5-14.5)
[2019-06-08 16:44] LABS: ALBUMIN 4.3 gm/dL (3.5-5.0); BILIRUBIN,TOTAL 0.7 mg/dL (0.0-1.0); CALCIUM 9.5 mg/dL (8.4-10.2); CREATININE, serum 0.85 (0.52-1.25); TOTAL PROTEIN 7.4 gm/dL (6.4-8.2)
[2019-06-08 16:50] VITALS: BP 126/26; PULSE 52; TEMP 97.6
--- NOTE | 2019-06-08 17:56 | NUR ---
report to Krystal alvarenga.
== END 2019-06-08 18:35 | disposition home or self-care (01) ==
LOC: EUO 16:12
PROVIDERS: Psychiatry & Neurology Neurology
DX: G35 Multiple sclerosis (principal); Z79.899 Other long term (current) drug therapy
CPT/HCPCS: J2323; J7050

== ENCOUNTER 2019-07-06 16:12 | Outpatient (CLI) | payer OTHER ==
[~2019-07-06] VITALS: Ht 175.3 cm; Wt 63.0 kg
[2019-07-06 16:50] LABS: BASO % 0.6 % (0.0-2.0); EOS # 0.1 (0.0-0.7); EOS % 2.6 % (0-4.0); GRAN # 2.1 (1.4-6.5); GRAN % 39.7 % (42.2-75.2); HEMATOCRIT 37.2 % (37.0-47.0); HEMOGLOBIN 11.6 g/dl (12.5-16.0); LYMPH # 2.2 (1.2-3.4); LYMPH % 41.7 % (20.0-51.0); MEAN CELL VOLUME 91 fl (80.0-100.0); MEAN CORPUSCULAR HEMOGLOBIN 28 pg (27.0-31.0); MEAN CORPUSCULAR HGB CONC 31 g/dl (33.0-37.0); MEAN PLATELET VOLUME 11.4 fl (7.4-10.4); MONO # 0.8 (0.1-0.6); PLATELET COUNT 206 K/mm3 (130-400); RED BLOOD COUNT 4.09 M/mm3 (4.10-5.30); REDCELL DISTRIBUTION WIDTH-CV 17.4 % (11.5-14.5)
[2019-07-06 17:03] LABS: ALBUMIN 4.4 gm/dL (3.5-5.0); BILIRUBIN,TOTAL 0.8 mg/dL (0.0-1.0); CALCIUM 9.4 mg/dL (8.4-10.2); CREATININE, serum 0.82 (0.52-1.25); POTASSIUM 4.1 mmol/L (3.4-5.0); TOTAL PROTEIN 7.4 gm/dL (6.4-8.2)
[2019-07-06 17:30] VITALS: BP 134/69; PULSE 58; TEMP 98.2
== END 2019-07-06 19:04 | disposition home or self-care (01) ==
LOC: EUO 16:12
PROVIDERS: Psychiatry & Neurology Neurology
DX: G35 Multiple sclerosis (principal); Z79.899 Other long term (current) drug therapy
CPT/HCPCS: J2323; J7050

== ENCOUNTER 2019-08-03 16:09 | Outpatient (CLI) | payer OTHER ==
[~2019-08-03] VITALS: Ht 175.3 cm; Wt 65.3 kg
[2019-08-03 16:42] LABS: BASO % 0.6 % (0.0-2.0); EOS # 0.1 (0.0-0.7); EOS % 2.5 % (0-4.0); GRAN # 1.4 (1.4-6.5); GRAN % 29.6 % (42.2-75.2); HEMOGLOBIN 11.4 g/dl (12.5-16.0); LYMPH # 2.4 (1.2-3.4); LYMPH % 49.7 % (20.0-51.0); MEAN CELL VOLUME 92 fl (80.0-100.0); MEAN CORPUSCULAR HEMOGLOBIN 29 pg (27.0-31.0); MEAN CORPUSCULAR HGB CONC 31 g/dl (33.0-37.0); MEAN PLATELET VOLUME 10.9 fl (7.4-10.4); MONO # 0.8 (0.1-0.6); MONO % 17.4 % (1.7-9.3); PLATELET COUNT 197 K/mm3 (130-400); REDCELL DISTRIBUTION WIDTH-CV 17.2 % (11.5-14.5)
[2019-08-03 16:45] LABS: HEMATOCRIT 36.6 % (37.0-47.0)
[2019-08-03 16:52] LABS: ALBUMIN 4.1 gm/dL (3.5-5.0); BILIRUBIN,TOTAL 0.5 mg/dL (0.0-1.0); CALCIUM 9.2 mg/dL (8.4-10.2); CREATININE, serum 0.82 (0.52-1.25); POTASSIUM 4.3 mmol/L (3.4-5.0); TOTAL PROTEIN 7.1 gm/dL (6.4-8.2)
[2019-08-03 17:23] VITALS: BP 132/54; PULSE 56; TEMP 98
== END 2019-08-03 18:27 | disposition home or self-care (01) ==
LOC: EUO 16:09
PROVIDERS: Psychiatry & Neurology Neurology
DX: G35 Multiple sclerosis (principal); Z79.899 Other long term (current) drug therapy
CPT/HCPCS: J2323; J7050

== ENCOUNTER 2019-08-31 16:17 | Outpatient (CLI) | payer OTHER ==
[~2019-08-31] VITALS: Ht 175.3 cm; Wt 64.9 kg
[2019-08-31 16:44] LABS: BASO % 0.8 % (0.0-2.0); EOS # 0.1 (0.0-0.7); EOS % 1.2 % (0-4.0); GRAN # 1.6 (1.4-6.5); GRAN % 33.3 % (42.2-75.2); HEMOGLOBIN 10.5 g/dl (12.5-16.0); LYMPH # 2.3 (1.2-3.4); LYMPH % 46.3 % (20.0-51.0); MEAN CELL VOLUME 92 fl (80.0-100.0); MEAN CORPUSCULAR HEMOGLOBIN 29 pg (27.0-31.0); MEAN CORPUSCULAR HGB CONC 31 g/dl (33.0-37.0); MEAN PLATELET VOLUME 11.4 fl (7.4-10.4); MONO # 0.9 (0.1-0.6); MONO % 18.2 % (1.7-9.3); PLATELET COUNT 203 K/mm3 (130-400); RED BLOOD COUNT 3.68 M/mm3 (4.10-5.30); REDCELL DISTRIBUTION WIDTH-CV 16.3 % (11.5-14.5)
[2019-08-31 16:49] LABS: HEMATOCRIT 33.7 % (37.0-47.0)
[2019-08-31 16:53] LABS: BILIRUBIN,TOTAL 0.4 mg/dL (0.0-1.0); CREATININE, serum 0.65 (0.52-1.25); POTASSIUM 3.9 mmol/L (3.4-5.0); TOTAL PROTEIN 6.8 gm/dL (6.4-8.2)
[2019-08-31 17:28] VITALS: BP 130/67; PULSE 52; TEMP 97.9
== END 2019-08-31 20:00 | disposition home or self-care (01) ==
LOC: EUO 16:17
PROVIDERS: Psychiatry & Neurology Neurology
DX: G35 Multiple sclerosis (principal); Z79.899 Other long term (current) drug therapy
CPT/HCPCS: J2323; J7050

== ENCOUNTER 2019-09-28 16:24 | Outpatient (CLI) | payer OTHER ==
[~2019-09-28] VITALS: Ht 175.3 cm; Wt 62.6 kg
[2019-09-28 16:35] VITALS: BP 110/67; PULSE 59; TEMP 97.8
[2019-09-28 16:40] LABS: BASO % 0.7 % (0.0-2.0); EOS # 0.1 (0.0-0.7); EOS % 0.9 % (0-4.0); GRAN % 35.6 % (42.2-75.2); HEMATOCRIT 37.9 % (37.0-47.0); HEMOGLOBIN 12.1 g/dl (12.5-16.0); LYMPH # 2.6 (1.2-3.4); LYMPH % 46.2 % (20.0-51.0); MEAN CELL VOLUME 94 fl (80.0-100.0); MEAN CORPUSCULAR HEMOGLOBIN 30 pg (27.0-31.0); MEAN CORPUSCULAR HGB CONC 32 g/dl (33.0-37.0); MEAN PLATELET VOLUME 11.5 fl (7.4-10.4); MONO # 0.9 (0.1-0.6); MONO % 16.2 % (1.7-9.3); PLATELET COUNT 206 K/mm3 (130-400); RED BLOOD COUNT 4.03 M/mm3 (4.10-5.30); REDCELL DISTRIBUTION WIDTH-CV 14.7 % (11.5-14.5)
[2019-09-28 16:56] LABS: ALBUMIN 4.5 gm/dL (3.5-5.0); BILIRUBIN,TOTAL 1.1 mg/dL (0.0-1.0); CALCIUM 9.6 mg/dL (8.4-10.2); CREATININE, serum 0.89 (0.52-1.25); POTASSIUM 3.9 mmol/L (3.4-5.0); TOTAL PROTEIN 7.5 gm/dL (6.4-8.2)
== END 2019-09-28 18:12 | disposition home or self-care (01) ==
LOC: EUO 16:24
PROVIDERS: Psychiatry & Neurology Neurology
DX: G35 Multiple sclerosis (principal)
CPT/HCPCS: J2323; J7050

== ENCOUNTER 2019-10-26 16:10 | Outpatient (CLI) | payer OTHER ==
[~2019-10-26] VITALS: Ht 175.3 cm; Wt 62.4 kg
[2019-10-26 16:36] LABS: BASO % 0.6 % (0.0-2.0); EOS # 0.1 (0.0-0.7); EOS % 1.6 % (0-4.0); GRAN # 1.4 (1.4-6.5); GRAN % 28.2 % (42.2-75.2); HEMATOCRIT 37.7 % (37.0-47.0); LYMPH # 2.6 (1.2-3.4); LYMPH % 50.9 % (20.0-51.0); MEAN CELL VOLUME 96 fl (80.0-100.0); MEAN CORPUSCULAR HEMOGLOBIN 31 pg (27.0-31.0); MEAN CORPUSCULAR HGB CONC 32 g/dl (33.0-37.0); MONO # 0.9 (0.1-0.6); MONO % 18.3 % (1.7-9.3); PLATELET COUNT 212 K/mm3 (130-400); RED BLOOD COUNT 3.94 M/mm3 (4.10-5.30); REDCELL DISTRIBUTION WIDTH-CV 14.9 % (11.5-14.5)
[2019-10-26 16:50] LABS: ALBUMIN 4.7 gm/dL (3.5-5.0); BILIRUBIN,TOTAL 0.9 mg/dL (0.0-1.0); CALCIUM 9.6 mg/dL (8.4-10.2); CREATININE, serum 0.64 (0.52-1.25); POTASSIUM 4.2 mmol/L (3.4-5.0); TOTAL PROTEIN 7.8 gm/dL (6.4-8.2)
[2019-10-26 17:43] VITALS: BP 126/64; PULSE 74; TEMP 97.4
== END 2019-10-26 17:44 | disposition home or self-care (01) ==
LOC: EUO 16:10
PROVIDERS: Psychiatry & Neurology Neurology
DX: G35 Multiple sclerosis (principal); Z79.899 Other long term (current) drug therapy
CPT/HCPCS: J2323; J7050

== ENCOUNTER 2019-11-23 16:14 | Outpatient (CLI) | payer OTHER ==
[~2019-11-23] VITALS: Ht 175.3 cm; Wt 62.5 kg
[2019-11-23 16:39] LABS: HEMATOCRIT 37.3 % (37.0-47.0); HEMOGLOBIN 11.9 g/dl (12.5-16.0); MEAN CELL VOLUME 97 fl (80.0-100.0); MEAN CORPUSCULAR HEMOGLOBIN 31 pg (27.0-31.0); MEAN CORPUSCULAR HGB CONC 32 g/dl (33.0-37.0); MEAN PLATELET VOLUME 10.7 fl (7.4-10.4); PLATELET COUNT 199 K/mm3 (130-400); RED BLOOD COUNT 3.86 M/mm3 (4.10-5.30); REDCELL DISTRIBUTION WIDTH-CV 15.2 % (11.5-14.5)
[2019-11-23 16:49] LABS: ALBUMIN 4.4 gm/dL (3.5-5.0); CALCIUM 9.3 mg/dL (8.4-10.2); CREATININE, serum 0.96 (0.52-1.25); POTASSIUM 4.2 mmol/L (3.4-5.0); TOTAL PROTEIN 7.4 gm/dL (6.4-8.2)
[2019-11-23 17:12] VITALS: BP 118/76; PULSE 58; TEMP 98.6
[2019-11-23 17:52] LABS: ANISOCYTOSIS 2+; EOSINOPHIL 1 % (0-4); LYMPHOCYTE 53 % (20.0-51.0); NEUTROPHILS 27 % (42.0-75.2); NUCLEATED RED BLOOD CELL 1 (0-6); PLATELET ESTIMATE NORMAL (NORMAL)
== END 2019-11-23 18:17 | disposition home or self-care (01) ==
LOC: EUO 16:14
PROVIDERS: Psychiatry & Neurology Neurology
DX: G35 Multiple sclerosis (principal); Z79.899 Other long term (current) drug therapy
CPT/HCPCS: J2323; J7050

== ENCOUNTER 2020-01-18 09:04 | Outpatient (CLI) | payer OTHER ==
[~2020-01-18] VITALS: Ht 175.3 cm; Wt 60.9 kg
[2020-01-18 09:34] VITALS: BP 126/86; PULSE 54; TEMP 98
[2020-01-18 09:47] LABS: HEMATOCRIT 37.4 % (37.0-47.0); HEMOGLOBIN 12.1 g/dl (12.5-16.0); MEAN CELL VOLUME 97 fl (80.0-100.0); MEAN CORPUSCULAR HEMOGLOBIN 31 pg (27.0-31.0); MEAN CORPUSCULAR HGB CONC 32 g/dl (33.0-37.0); MEAN PLATELET VOLUME 11.2 fl (7.4-10.4); PLATELET COUNT 201 K/mm3 (130-400); RED BLOOD COUNT 3.87 M/mm3 (4.10-5.30)
[2020-01-18 09:55] LABS: ALBUMIN 4.5 gm/dL (3.5-5.0); BILIRUBIN,TOTAL 0.8 mg/dL (0.0-1.0); CALCIUM 9.4 mg/dL (8.4-10.2); CREATININE, serum 0.7 (0.52-1.25); POTASSIUM 3.8 mmol/L (3.4-5.0); TOTAL PROTEIN 7.5 gm/dL (6.4-8.2)
[2020-01-18 11:10] LABS: BAND 1 % (0-10); EOSINOPHIL 1 % (0-4); LYMPHOCYTE 51 % (20.0-51.0); METAMYELOCYTE 2 % (0-0); NEUTROPHILS 32 % (42.0-75.2); NUCLEATED RED BLOOD CELL 3 (0-6); PLATELET ESTIMATE NORMAL (NORMAL)
== END 2020-01-18 11:45 | disposition home or self-care (01) ==
LOC: EUO 09:04
PROVIDERS: Psychiatry & Neurology Neurology
DX: G35 Multiple sclerosis (principal); Z79.899 Other long term (current) drug therapy
CPT/HCPCS: J2323; J7050

== ENCOUNTER 2020-02-15 16:09 | Outpatient (CLI) | payer OTHER ==
[~2020-02-15] VITALS: Ht 175.3 cm; Wt 60.7 kg
[2020-02-15 16:29] VITALS: BP 116/45; PULSE 76; TEMP 98.4
[2020-02-15 16:54] LABS: HEMATOCRIT 43.5 % (37.0-47.0); HEMOGLOBIN 13.9 g/dl (12.5-16.0); MEAN CELL VOLUME 98 fl (80.0-100.0); MEAN CORPUSCULAR HEMOGLOBIN 31 pg (27.0-31.0); MEAN CORPUSCULAR HGB CONC 32 g/dl (33.0-37.0); MEAN PLATELET VOLUME 11.8 fl (7.4-10.4); PLATELET COUNT 213 K/mm3 (130-400); RED BLOOD COUNT 4.46 M/mm3 (4.10-5.30); REDCELL DISTRIBUTION WIDTH-CV 13.2 % (11.5-14.5)
[2020-02-15 17:05] LABS: ALBUMIN 4.9 gm/dL (3.5-5.0); BILIRUBIN,TOTAL 1.6 mg/dL (0.0-1.0); CALCIUM 9.9 mg/dL (8.4-10.2); CREATININE, serum 0.69 (0.52-1.25); POTASSIUM 3.8 mmol/L (3.4-5.0); TOTAL PROTEIN 8.5 gm/dL (6.4-8.2)
== END 2020-02-15 18:21 | disposition home or self-care (01) ==
LOC: EUO 16:09
PROVIDERS: Psychiatry & Neurology Neurology
DX: G35 Multiple sclerosis (principal); Z79.899 Other long term (current) drug therapy
CPT/HCPCS: J2323; J7050

== ENCOUNTER 2020-03-14 16:18 | Outpatient (CLI) | payer OTHER ==
[~2020-03-14] VITALS: Ht 175.3 cm; Wt 59.1 kg
[2020-03-14 16:40] VITALS: BP 141/58; PULSE 57; TEMP 98.8
[2020-03-14 16:40] LABS: HEMATOCRIT 39.4 % (37.0-47.0); HEMOGLOBIN 12.7 g/dl (12.5-16.0); MEAN CELL VOLUME 97 fl (80.0-100.0); MEAN CORPUSCULAR HEMOGLOBIN 31 pg (27.0-31.0); MEAN CORPUSCULAR HGB CONC 32 g/dl (33.0-37.0); MEAN PLATELET VOLUME 11.4 fl (7.4-10.4); PLATELET COUNT 198 K/mm3 (130-400); RED BLOOD COUNT 4.08 M/mm3 (4.10-5.30)
[2020-03-14] MEDS ORDERED: FERRO-TIME325 MG PO (16:40)
[2020-03-14 17:02] LABS: ALBUMIN 4.5 gm/dL (3.5-5.0); BILIRUBIN,TOTAL 1.2 mg/dL (0.0-1.0); CALCIUM 9.7 mg/dL (8.4-10.2); CREATININE, serum 0.76 (0.52-1.25); POTASSIUM 4.1 mmol/L (3.4-5.0); TOTAL PROTEIN 7.8 gm/dL (6.4-8.2)
[2020-03-14 17:14] LABS: BAND 3 % (0-10); EOSINOPHIL 2 % (0-4); LYMPHOCYTE 45 % (20.0-51.0); NEUTROPHILS 38 % (42.0-75.2); PLATELET ESTIMATE NORMAL (NORMAL)
== END 2020-03-14 18:55 | disposition home or self-care (01) ==
LOC: EUO 16:18
PROVIDERS: Psychiatry & Neurology Neurology
DX: G35 Multiple sclerosis (principal); Z79.899 Other long term (current) drug therapy
CPT/HCPCS: J2323; J7050

== ENCOUNTER 2020-04-11 16:12 | Outpatient (CLI) | payer OTHER ==
[~2020-04-11] VITALS: Ht 175.3 cm; Wt 59.7 kg
[~2020-04-11 16:12] MED LIST changes: +FERRO-TIME325 MG PO
[2020-04-11 16:35] LABS: HEMATOCRIT 40.5 % (37.0-47.0); HEMOGLOBIN 13.1 g/dl (12.5-16.0); MEAN CELL VOLUME 97 fl (80.0-100.0); MEAN CORPUSCULAR HEMOGLOBIN 31 pg (27.0-31.0); MEAN CORPUSCULAR HGB CONC 32 g/dl (33.0-37.0); MEAN PLATELET VOLUME 11.2 fl (7.4-10.4); PLATELET COUNT 197 K/mm3 (130-400); RED BLOOD COUNT 4.17 M/mm3 (4.10-5.30); REDCELL DISTRIBUTION WIDTH-CV 13.7 % (11.5-14.5)
[2020-04-11 16:45] LABS: ALBUMIN 4.4 gm/dL (3.5-5.0); BILIRUBIN,TOTAL 1.6 mg/dL (0.0-1.0); CALCIUM 9.8 mg/dL (8.4-10.2); CREATININE, serum 0.76 (0.52-1.25); TOTAL PROTEIN 7.7 gm/dL (6.4-8.2)
[2020-04-11 17:57] VITALS: BP 128/76; PULSE 66; TEMP 98.5
== END 2020-04-11 18:07 | disposition home or self-care (01) ==
LOC: EUO 16:12
PROVIDERS: Psychiatry & Neurology Neurology
DX: G35 Multiple sclerosis (principal); Z79.899 Other long term (current) drug therapy
CPT/HCPCS: J2323; J7050

== ENCOUNTER → 2020-05-09 | Outpatient (CLI) | payer OTHER ==
[~2020-05-09] VITALS: Ht 175.3 cm; Wt 60.1 kg
[2020-05-09 16:41] LABS: HEMATOCRIT 39.6 % (37.0-47.0); HEMOGLOBIN 12.7 g/dl (12.5-16.0); MEAN CELL VOLUME 97 fl (80.0-100.0); MEAN CORPUSCULAR HEMOGLOBIN 31 pg (27.0-31.0); MEAN CORPUSCULAR HGB CONC 32 g/dl (33.0-37.0); MEAN PLATELET VOLUME 11.4 fl (7.4-10.4); PLATELET COUNT 184 K/mm3 (130-400); REDCELL DISTRIBUTION WIDTH-CV 13.4 % (11.5-14.5)
[2020-05-09 16:52] LABS: ALBUMIN 4.5 gm/dL (3.5-5.0); BILIRUBIN,TOTAL 1.5 mg/dL (0.0-1.0); CALCIUM 9.4 mg/dL (8.4-10.2); CREATININE, serum 0.82 (0.52-1.25); POTASSIUM 3.6 mmol/L (3.4-5.0); TOTAL PROTEIN 7.7 gm/dL (6.4-8.2)
[2020-05-09 17:17] LABS: BAND 3 % (0-10); EOSINOPHIL 2 % (0-4); LYMPHOCYTE 48 % (20.0-51.0); NEUTROPHILS 34 % (42.0-75.2)
[2020-05-09 17:18] LABS: HYPOCHROMIA 1+; PLATELET ESTIMATE NORMAL (NORMAL)
[2020-05-09 17:19] LABS: STOMATOCYTE 1+
[2020-05-09 17:55] VITALS: BP 132/87; PULSE 54; TEMP 97.8
== END ==
LOC: EUO 16:00
PROVIDERS: Psychiatry & Neurology Neurology
DX: G35 Multiple sclerosis (principal); Z79.899 Other long term (current) drug therapy
CPT/HCPCS: J2323

== ENCOUNTER 2020-06-06 16:14 | Outpatient (CLI) | payer OTHER ==
[~2020-06-06] VITALS: Ht 175.3 cm; Wt 56.0 kg
[2020-06-06 16:29] LABS: HEMOGLOBIN 10.9 g/dl (12.5-16.0); MEAN CELL VOLUME 97 fl (80.0-100.0); MEAN CORPUSCULAR HEMOGLOBIN 31 pg (27.0-31.0); MEAN CORPUSCULAR HGB CONC 32 g/dl (33.0-37.0); MEAN PLATELET VOLUME 11.1 fl (7.4-10.4); PLATELET COUNT 216 K/mm3 (130-400); RED BLOOD COUNT 3.48 M/mm3 (4.10-5.30); REDCELL DISTRIBUTION WIDTH-CV 13.9 % (11.5-14.5)
[2020-06-06 16:34] LABS: HEMATOCRIT 33.7 % (37.0-47.0)
[2020-06-06 16:39] LABS: ALBUMIN 4.3 gm/dL (3.5-5.0); BILIRUBIN,TOTAL 0.9 mg/dL (0.0-1.0); CALCIUM 9.1 mg/dL (8.4-10.2); CREATININE, serum 0.73 (0.52-1.25); POTASSIUM 3.8 mmol/L (3.4-5.0); TOTAL PROTEIN 7.1 gm/dL (6.4-8.2)
[2020-06-06 17:35] VITALS: BP 136/71; PULSE 60; TEMP 98.1
[2020-06-06 18:07] LABS: BAND 2 % (0-10); EOSINOPHIL 5 % (0-4); NEUTROPHILS 35 % (42.0-75.2)
[2020-06-06 18:08] LABS: LYMPHOCYTE 46 % (20.0-51.0); PLATELET ESTIMATE NORMAL (NORMAL)
== END 2020-06-06 18:14 | disposition home or self-care (01) ==
LOC: EUO 16:14
PROVIDERS: Psychiatry & Neurology Neurology
DX: G35 Multiple sclerosis (principal); Z79.899 Other long term (current) drug therapy
CPT/HCPCS: J2323

== ENCOUNTER 2020-07-04 16:13 | Outpatient (CLI) | payer OTHER ==
[~2020-07-04] VITALS: Ht 175.3 cm; Wt 60.0 kg
[2020-07-04 16:34] LABS: HEMOGLOBIN 11.4 g/dl (12.5-16.0); MEAN CELL VOLUME 96 fl (80.0-100.0); MEAN CORPUSCULAR HEMOGLOBIN 31 pg (27.0-31.0); MEAN CORPUSCULAR HGB CONC 32 g/dl (33.0-37.0); MEAN PLATELET VOLUME 10.8 fl (7.4-10.4); PLATELET COUNT 209 K/mm3 (130-400); RED BLOOD COUNT 3.73 M/mm3 (4.10-5.30); REDCELL DISTRIBUTION WIDTH-CV 13.3 % (11.5-14.5)
[2020-07-04 16:37] LABS: HEMATOCRIT 35.7 % (37.0-47.0)
[2020-07-04 16:49] LABS: ALBUMIN 4.2 gm/dL (3.5-5.0); BILIRUBIN,TOTAL 0.9 mg/dL (0.0-1.0); CALCIUM 9.1 mg/dL (8.4-10.2); CREATININE, serum 0.72 (0.52-1.25); POTASSIUM 3.6 mmol/L (3.4-5.0); TOTAL PROTEIN 7.1 gm/dL (6.4-8.2)
[2020-07-04 16:53] LABS: ANISOCYTOSIS 1+; BAND 3 % (0-10); EOSINOPHIL 2 % (0-4); LYMPHOCYTE 52 % (20.0-51.0); NEUTROPHILS 38 % (42.0-75.2); PLATELET ESTIMATE NORMAL (NORMAL)
[2020-07-04 17:41] VITALS: BP 142/77; PULSE 56; TEMP 97.7
== END 2020-07-04 18:05 | disposition home or self-care (01) ==
LOC: EUO 16:13
PROVIDERS: Psychiatry & Neurology Neurology
DX: G35 Multiple sclerosis (principal); Z79.899 Other long term (current) drug therapy
CPT/HCPCS: J2323

== ENCOUNTER → 2020-08-01 | Outpatient (CLI) | payer OTHER ==
[~2020-08-01] VITALS: Ht 175.3 cm; Wt 58.2 kg
[2020-08-01 16:53] LABS: HEMOGLOBIN 11.3 g/dl (12.5-16.0); MEAN CELL VOLUME 94 fl (80.0-100.0); MEAN CORPUSCULAR HEMOGLOBIN 30 pg (27.0-31.0); MEAN CORPUSCULAR HGB CONC 32 g/dl (33.0-37.0); MEAN PLATELET VOLUME 11.3 fl (7.4-10.4); PLATELET COUNT 222 K/mm3 (130-400); RED BLOOD COUNT 3.78 M/mm3 (4.10-5.30); REDCELL DISTRIBUTION WIDTH-CV 13.1 % (11.5-14.5)
[2020-08-01 16:55] LABS: HEMATOCRIT 35.7 % (37.0-47.0)
[2020-08-01 17:10] VITALS: BP 132/52; PULSE 62; TEMP 98.3
[2020-08-01 17:17] LABS: ALBUMIN 4.4 gm/dL (3.5-5.0); BILIRUBIN,TOTAL 0.7 mg/dL (0.0-1.0); CALCIUM 9.3 mg/dL (8.4-10.2); CREATININE, serum 0.68 (0.52-1.25); POTASSIUM 3.7 mmol/L (3.4-5.0); TOTAL PROTEIN 7.5 gm/dL (6.4-8.2)
[2020-08-01 18:20] LABS: EOSINOPHIL 1 % (0-4); NEUTROPHILS 35 % (42.0-75.2); PLATELET ESTIMATE NORMAL (NORMAL)
[2020-08-01 18:21] LABS: LYMPHOCYTE 45 % (20.0-51.0)
== END ==
LOC: EUO 16:00
PROVIDERS: Psychiatry & Neurology Neurology
DX: G35 Multiple sclerosis (principal)
CPT/HCPCS: J2323

== ENCOUNTER 2020-08-29 16:13 | Outpatient (CLI) | payer OTHER ==
[2020-08-29 16:45] VITALS: BP 109/66; PULSE 63; TEMP 97.9
[2020-08-29 16:58] LABS: HEMOGLOBIN 10.9 g/dl (12.5-16.0); MEAN CELL VOLUME 92 fl (80.0-100.0); MEAN CORPUSCULAR HEMOGLOBIN 29 pg (27.0-31.0); MEAN CORPUSCULAR HGB CONC 31 g/dl (33.0-37.0); MEAN PLATELET VOLUME 11.3 fl (7.4-10.4); PLATELET COUNT 245 K/mm3 (130-400); RED BLOOD COUNT 3.78 M/mm3 (4.10-5.30); REDCELL DISTRIBUTION WIDTH-CV 13.2 % (11.5-14.5)
[2020-08-29 17:06] LABS: HEMATOCRIT 34.8 % (37.0-47.0)
[2020-08-29 17:20] LABS: ALBUMIN 4.2 gm/dL (3.5-5.0); BILIRUBIN,TOTAL 0.7 mg/dL (0.0-1.0); CALCIUM 9.2 mg/dL (8.4-10.2); CREATININE, serum 0.67 (0.52-1.25); POTASSIUM 3.6 mmol/L (3.4-5.0); TOTAL PROTEIN 7.3 gm/dL (6.4-8.2)
--- NOTE | 2020-08-29 17:45 | NUR ---
rEPORT FROM Cathy Cheng.
[2020-08-29 18:28] LABS: EOSINOPHIL 2 % (0-4); NEUTROPHILS 38 % (42.0-75.2)
[2020-08-29 18:29] LABS: LYMPHOCYTE 40 % (20.0-51.0); PLATELET ESTIMATE NORMAL (NORMAL)
== END 2020-08-29 18:38 | disposition home or self-care (01) ==
LOC: EUO 16:13
PROVIDERS: Psychiatry & Neurology Neurology
DX: G35 Multiple sclerosis (principal)
CPT/HCPCS: J2323

== ENCOUNTER 2020-09-28 16:08 | Outpatient (CLI) | payer OTHER ==
[~2020-09-28] VITALS: Ht 175.3 cm; Wt 62.1 kg
[2020-09-28 16:42] LABS: ALBUMIN 3.9 gm/dL (3.5-5.0); BILIRUBIN,TOTAL 0.8 mg/dL (0.0-1.0); CALCIUM 8.7 mg/dL (8.4-10.2); CREATININE, serum 0.64 (0.52-1.25); POTASSIUM 3.9 mmol/L (3.4-5.0); TOTAL PROTEIN 6.7 gm/dL (6.4-8.2)
[2020-09-28 16:49] LABS: MEAN CELL VOLUME 90 fl (80.0-100.0); MEAN CORPUSCULAR HGB CONC 31 g/dl (33.0-37.0); MEAN PLATELET VOLUME 10.9 fl (7.4-10.4); PLATELET COUNT 247 K/mm3 (130-400); RED BLOOD COUNT 3.46 M/mm3 (4.10-5.30); REDCELL DISTRIBUTION WIDTH-CV 13.6 % (11.5-14.5)
[2020-09-28 16:56] LABS: HEMOGLOBIN 9.6 g/dl (12.5-16.0); MEAN CORPUSCULAR HEMOGLOBIN 28 pg (27.0-31.0)
[2020-09-28 17:30] VITALS: BP 128/65; PULSE 57; TEMP 98.4
[2020-09-28 19:15] LABS: BAND 1 % (0-10); EOSINOPHIL 1 % (0-4); HYPOCHROMIA 3+; LYMPHOCYTE 44 % (20.0-51.0); NEUTROPHILS 42 % (42.0-75.2); PLATELET ESTIMATE NORMAL (NORMAL); STOMATOCYTE 2+
== END 2020-09-28 18:34 | disposition home or self-care (01) ==
LOC: EUO 16:08
PROVIDERS: Psychiatry & Neurology Neurology
DX: G35 Multiple sclerosis (principal)
CPT/HCPCS: J2323

== ENCOUNTER 2020-10-31 16:16 | Outpatient (CLI) | payer OTHER ==
[~2020-10-31] VITALS: Ht 175.3 cm; Wt 62.7 kg
[2020-10-31 16:35] LABS: BASO # 0.1 (0.0-0.2); BASO % 0.9 % (0.0-2.0); EOS # 0.1 (0.0-0.7); GRAN # 2.2 (1.4-6.5); HEMOGLOBIN 10.5 g/dl (12.5-16.0); LYMPH # 2.4 (1.2-3.4); LYMPH % 40.6 % (20.0-51.0); MEAN CELL VOLUME 87 fl (80.0-100.0); MEAN CORPUSCULAR HEMOGLOBIN 27 pg (27.0-31.0); MEAN CORPUSCULAR HGB CONC 31 g/dl (33.0-37.0); MEAN PLATELET VOLUME 10.7 fl (7.4-10.4); MONO # 1.1 (0.1-0.6); MONO % 19.3 % (1.7-9.3); PLATELET COUNT 270 K/mm3 (130-400); RED BLOOD COUNT 3.94 M/mm3 (4.10-5.30); REDCELL DISTRIBUTION WIDTH-CV 14.3 % (11.5-14.5)
[2020-10-31 16:36] LABS: HEMATOCRIT 34.3 % (37.0-47.0)
[2020-10-31 16:43] LABS: ALBUMIN 4.5 gm/dL (3.5-5.0); BILIRUBIN,TOTAL 0.9 mg/dL (0.0-1.0); CALCIUM 9.3 mg/dL (8.4-10.2); CREATININE, serum 0.7 (0.52-1.25); POTASSIUM 3.9 mmol/L (3.4-5.0); TOTAL PROTEIN 7.7 gm/dL (6.4-8.2)
[2020-10-31 17:09] VITALS: BP 125/79; PULSE 58; TEMP 98.2
== END 2020-10-31 18:15 | disposition home or self-care (01) ==
LOC: EUO 16:16
PROVIDERS: Psychiatry & Neurology Neurology
DX: G35 Multiple sclerosis (principal); Z79.899 Other long term (current) drug therapy
CPT/HCPCS: J2323

== ENCOUNTER 2020-11-28 16:12 | Outpatient (CLI) | payer OTHER ==
[~2020-11-28] VITALS: Ht 175.3 cm; Wt 62.4 kg
[2020-11-28 16:52] LABS: MEAN CELL VOLUME 87 fl (80.0-100.0); MEAN CORPUSCULAR HGB CONC 30 g/dl (33.0-37.0); MEAN PLATELET VOLUME 11.3 fl (7.4-10.4); PLATELET COUNT 236 K/mm3 (130-400); RED BLOOD COUNT 3.73 M/mm3 (4.10-5.30)
[2020-11-28 16:54] LABS: HEMATOCRIT 32.3 % (37.0-47.0); HEMOGLOBIN 9.8 g/dl (12.5-16.0); MEAN CORPUSCULAR HEMOGLOBIN 26 pg (27.0-31.0)
[2020-11-28 17:00] LABS: ALBUMIN 4.1 gm/dL (3.5-5.0); BILIRUBIN,TOTAL 0.5 mg/dL (0.0-1.0); CREATININE, serum 0.77 (0.52-1.25); POTASSIUM 3.9 mmol/L (3.4-5.0)
[2020-11-28 17:27] VITALS: BP 124/72; PULSE 56; TEMP 97.8
[2020-11-28 17:31] LABS: BAND 1 % (0-10); LYMPHOCYTE 69 % (20.0-51.0); METAMYELOCYTE 5 % (0-0); NEUTROPHILS 20 % (42.0-75.2)
[2020-11-28 17:34] LABS: ANISOCYTOSIS 1+; HYPOCHROMIA 3+; PLATELET ESTIMATE NORMAL (NORMAL); SCHISTOCYTES 1+
[2020-11-29 08:11] LABS: PATHOLOGY DIFF REVIEW OK
[2020-12-26] MEDS ORDERED: VITAMINC500CH PO (17:37)
[2020-12-26] MEDS ORDERED: B COMPLEX & B121 TAB PO (17:37)
== END 2020-11-28 18:25 | disposition home or self-care (01) ==
LOC: EUO
PROVIDERS: Psychiatry & Neurology Neurology
DX: O90.0 Disruption of cesarean delivery wound (principal); G35 Multiple sclerosis; Z79.899 Other long term (current) drug therapy
CPT/HCPCS: J2323

== ENCOUNTER 2021-01-30 16:08 | Outpatient (CLI) | payer OTHER ==
[~2021-01-30] VITALS: Ht 175.3 cm; Wt 62.4 kg
[~2021-01-30 16:08] MED LIST changes: +B COMPLEX & B121 TAB PO; +VITAMINC500CH PO
[2021-01-30 16:28] LABS: MEAN CELL VOLUME 88 fl (80.0-100.0); MEAN CORPUSCULAR HEMOGLOBIN 27 pg (27.0-31.0); MEAN CORPUSCULAR HGB CONC 31 g/dl (33.0-37.0); MEAN PLATELET VOLUME 11.1 fl (7.4-10.4); PLATELET COUNT 257 K/mm3 (130-400); RED BLOOD COUNT 4.08 M/mm3 (4.10-5.30); REDCELL DISTRIBUTION WIDTH-CV 19.9 % (11.5-14.5)
[2021-01-30 16:29] LABS: HEMATOCRIT 35.9 % (37.0-47.0)
[2021-01-30 16:30] VITALS: BP 101/52; PULSE 62; TEMP 98
[2021-01-30 16:41] LABS: ALBUMIN 4.3 gm/dL (3.5-5.0); BILIRUBIN,TOTAL 0.5 mg/dL (0.0-1.0); CREATININE, serum 0.79 (0.52-1.25); POTASSIUM 3.9 mmol/L (3.4-5.0); TOTAL PROTEIN 7.4 gm/dL (6.4-8.2)
[2021-01-30 17:21] LABS: ANISOCYTOSIS 4+; BAND 2 % (0-10); HYPOCHROMIA 1+; LYMPHOCYTE 55 % (20.0-51.0); NEUTROPHILS 32 % (42.0-75.2); OVALOCYTES 1+; PLATELET ESTIMATE NORMAL (NORMAL)
== END 2021-01-30 18:16 | disposition home or self-care (01) ==
LOC: EUO 16:08
PROVIDERS: Psychiatry & Neurology Neurology
DX: G35 Multiple sclerosis (principal); Z79.899 Other long term (current) drug therapy
CPT/HCPCS: J2323

== ENCOUNTER 2021-02-27 16:10 | Outpatient (CLI) | payer OTHER ==
[~2021-02-27] VITALS: Ht 175.3 cm; Wt 69.0 kg
[2021-02-27 16:29] LABS: HEMOGLOBIN 11.3 g/dl (12.5-16.0); MEAN CELL VOLUME 90 fl (80.0-100.0); MEAN CORPUSCULAR HEMOGLOBIN 28 pg (27.0-31.0); MEAN CORPUSCULAR HGB CONC 31 g/dl (33.0-37.0); MEAN PLATELET VOLUME 10.3 fl (7.4-10.4); PLATELET COUNT 227 K/mm3 (130-400); RED BLOOD COUNT 4.07 M/mm3 (4.10-5.30); REDCELL DISTRIBUTION WIDTH-CV 19.8 % (11.5-14.5)
[2021-02-27 16:30] LABS: HEMATOCRIT 36.6 % (37.0-47.0)
[2021-02-27 16:39] LABS: ALBUMIN 4.2 gm/dL (3.5-5.0); BILIRUBIN,TOTAL 0.7 mg/dL (0.0-1.0); CALCIUM 9.4 mg/dL (8.4-10.2); CREATININE, serum 0.69 (0.52-1.25); POTASSIUM 3.7 mmol/L (3.4-5.0); TOTAL PROTEIN 7.3 gm/dL (6.4-8.2)
[2021-02-27 17:07] VITALS: BP 117/75; PULSE 55; TEMP 98.4
[2021-02-27 17:34] LABS: EOSINOPHIL 5 % (0-4); LYMPHOCYTE 54 % (20.0-51.0); NEUTROPHILS 34 % (42.0-75.2); PLATELET ESTIMATE NORMAL (NORMAL)
[2021-02-27 17:35] LABS: HYPOCHROMIA 2+
[2021-02-27 17:36] LABS: ANISOCYTOSIS 2+; POIKILOCYTOSIS 1+; TARGET CELLS 1+
[2021-02-27 17:37] LABS: OVALOCYTES 1+
[2021-02-27 17:40] LABS: NUCLEATED RED BLOOD CELL 2 (0-6)
== END 2021-02-28 14:16 ==
LOC: EUO 16:10
PROVIDERS: Psychiatry & Neurology Neurology
DX: G35 Multiple sclerosis (principal); Z79.899 Other long term (current) drug therapy
CPT/HCPCS: J2323

== ENCOUNTER 2021-03-29 16:04 | Outpatient (CLI) | payer OTHER ==
[~2021-03-29] VITALS: Ht 175.3 cm; Wt 98.4 kg
[2021-03-29 16:36] LABS: HEMOGLOBIN 11.3 g/dl (12.5-16.0); MEAN CELL VOLUME 90 fl (80.0-100.0); MEAN CORPUSCULAR HEMOGLOBIN 28 pg (27.0-31.0); MEAN CORPUSCULAR HGB CONC 32 g/dl (33.0-37.0); PLATELET COUNT 212 K/mm3 (130-400); RED BLOOD COUNT 3.98 M/mm3 (4.10-5.30); REDCELL DISTRIBUTION WIDTH-CV 16.9 % (11.5-14.5)
[2021-03-29 16:43] LABS: HEMATOCRIT 35.7 % (37.0-47.0)
[2021-03-29 16:46] LABS: ALBUMIN 4.1 gm/dL (3.5-5.0); BILIRUBIN,TOTAL 0.8 mg/dL (0.0-1.0); CALCIUM 9.4 mg/dL (8.4-10.2); CREATININE, serum 0.65 (0.52-1.25); POTASSIUM 4.1 mmol/L (3.4-5.0)
[2021-03-29 18:31] VITALS: BP 129/70; PULSE 67; TEMP 98.1
== END 2021-03-29 19:28 | disposition home or self-care (01) ==
LOC: EUO 16:04
PROVIDERS: Psychiatry & Neurology Neurology
DX: G35 Multiple sclerosis (principal); Z79.899 Other long term (current) drug therapy
CPT/HCPCS: J2323

== ENCOUNTER 2021-05-03 16:07 | Outpatient (CLI) | payer OTHER ==
[~2021-05-03] VITALS: Ht 175.3 cm; Wt 64.1 kg
[2021-05-03 16:43] LABS: HEMOGLOBIN 10.9 g/dl (12.5-16.0); MEAN CELL VOLUME 93 fl (80.0-100.0); MEAN CORPUSCULAR HEMOGLOBIN 29 pg (27.0-31.0); MEAN CORPUSCULAR HGB CONC 31 g/dl (33.0-37.0); MEAN PLATELET VOLUME 11.2 fl (7.4-10.4); PLATELET COUNT 218 K/mm3 (130-400); RED BLOOD COUNT 3.75 M/mm3 (4.10-5.30); REDCELL DISTRIBUTION WIDTH-CV 14.9 % (11.5-14.5)
[2021-05-03 16:50] LABS: ALBUMIN 4.1 gm/dL (3.5-5.0); BILIRUBIN,TOTAL 0.7 mg/dL (0.0-1.0); CALCIUM 9.2 mg/dL (8.4-10.2); CREATININE, serum 0.76 (0.52-1.25); POTASSIUM 4.1 mmol/L (3.4-5.0)
[2021-05-03 17:56] VITALS: BP 133/52; PULSE 53; TEMP 98.6
== END 2021-05-03 18:54 | disposition home or self-care (01) ==
LOC: EUO 16:07
PROVIDERS: Psychiatry & Neurology Neurology
DX: G35 Multiple sclerosis (principal); Z79.899 Other long term (current) drug therapy
CPT/HCPCS: J2323; J7050

== ENCOUNTER 2021-05-29 16:06 | Outpatient (CLI) | payer OTHER ==
[~2021-05-29] VITALS: Ht 175.3 cm; Wt 62.4 kg
[2021-05-29 16:25] LABS: HEMATOCRIT 37.3 % (37.0-47.0); HEMOGLOBIN 12.1 g/dl (12.5-16.0); MEAN CELL VOLUME 89 fl (80.0-100.0); MEAN CORPUSCULAR HEMOGLOBIN 29 pg (27.0-31.0); MEAN CORPUSCULAR HGB CONC 32 g/dl (33.0-37.0); MEAN PLATELET VOLUME 11.3 fl (7.4-10.4); PLATELET COUNT 238 K/mm3 (130-400); RED BLOOD COUNT 4.21 M/mm3 (4.10-5.30); REDCELL DISTRIBUTION WIDTH-CV 14.5 % (11.5-14.5)
[2021-05-29 16:30] VITALS: BP 129/71; PULSE 57; TEMP 98.3
[2021-05-29 16:34] LABS: ALBUMIN 4.5 gm/dL (3.5-5.0); CALCIUM 9.3 mg/dL (8.4-10.2); CREATININE, serum 0.86 (0.52-1.25); TOTAL PROTEIN 7.5 gm/dL (6.4-8.2)
[2021-05-29 18:24] LABS: BAND 2 % (0-10); BASOPHIL 1 % (0-2); EOSINOPHIL 1 % (0-4); HYPOCHROMIA 1+; LYMPHOCYTE 48 % (20.0-51.0); MYELOCYTE 1 % (0-0); NEUTROPHILS 33 % (42.0-75.2); PLATELET ESTIMATE NORMAL (NORMAL)
== END 2021-05-29 18:21 | disposition home or self-care (01) ==
LOC: EUO 16:06
PROVIDERS: Psychiatry & Neurology Neurology
DX: G35 Multiple sclerosis (principal); Z79.899 Other long term (current) drug therapy
CPT/HCPCS: J2323; J7050

== ENCOUNTER 2021-06-26 16:15 | Outpatient (CLI) | payer OTHER ==
[~2021-06-26] VITALS: Ht 175.3 cm; Wt 61.8 kg
[2021-06-26 16:33] LABS: HEMOGLOBIN 11.2 g/dl (12.5-16.0); MEAN CELL VOLUME 91 fl (80.0-100.0); MEAN CORPUSCULAR HEMOGLOBIN 29 pg (27.0-31.0); MEAN CORPUSCULAR HGB CONC 32 g/dl (33.0-37.0); MEAN PLATELET VOLUME 11.2 fl (7.4-10.4); PLATELET COUNT 239 K/mm3 (130-400); RED BLOOD COUNT 3.93 M/mm3 (4.10-5.30); REDCELL DISTRIBUTION WIDTH-CV 14.6 % (11.5-14.5)
[2021-06-26 16:39] LABS: HEMATOCRIT 35.6 % (37.0-47.0)
[2021-06-26 16:56] LABS: ALBUMIN 3.9 gm/dL (3.5-5.0); BILIRUBIN,TOTAL 0.7 mg/dL (0.2-1.2); CALCIUM 8.9 mg/dL (8.4-10.2); CREATININE, serum 0.82 mg/dL (0.57-1.11); POTASSIUM 3.9 mmol/L (3.5-4.5); TOTAL PROTEIN 7.2 gm/dL (6.2-8.1)
[2021-06-26 17:00] LABS: BAND 2 % (0-10); LYMPHOCYTE 47 % (20.0-51.0); NEUTROPHILS 37 % (42.0-75.2); PLATELET ESTIMATE NORMAL (NORMAL)
[2021-06-26 17:04] VITALS: BP 132/80; PULSE 57; TEMP 97.6
== END 2021-06-26 18:25 | disposition home or self-care (01) ==
LOC: EUO 16:15
PROVIDERS: Psychiatry & Neurology Neurology
DX: G35 Multiple sclerosis (principal); Z79.899 Other long term (current) drug therapy
CPT/HCPCS: J2323; J7050

== ENCOUNTER 2021-07-24 16:08 | Outpatient (CLI) | payer OTHER ==
[~2021-07-24] VITALS: Ht 175.3 cm; Wt 64.5 kg
[2021-07-24 16:28] LABS: HEMOGLOBIN 10.4 g/dl (12.5-16.0); MEAN CELL VOLUME 89 fl (80.0-100.0); MEAN CORPUSCULAR HEMOGLOBIN 28 pg (27.0-31.0); MEAN CORPUSCULAR HGB CONC 31 g/dl (33.0-37.0); MEAN PLATELET VOLUME 11.2 fl (7.4-10.4); PLATELET COUNT 267 K/mm3 (130-400); RED BLOOD COUNT 3.78 M/mm3 (4.10-5.30)
[2021-07-24 16:32] LABS: HEMATOCRIT 33.7 % (37.0-47.0)
[2021-07-24 16:50] LABS: ALBUMIN 4.1 gm/dL (3.5-5.0); BILIRUBIN,TOTAL 0.7 mg/dL (0.2-1.2); CREATININE, serum 0.81 mg/dL (0.57-1.11); POTASSIUM 3.5 mmol/L (3.5-4.5); TOTAL PROTEIN 7.4 gm/dL (6.2-8.1)
[2021-07-24 17:13] VITALS: BP 125/62; PULSE 86; TEMP 97.8
[2021-07-24 17:32] LABS: EOSINOPHIL 1 % (0-4); LYMPHOCYTE 44 % (20.0-51.0); NEUTROPHILS 39 % (42.0-75.2); PLATELET ESTIMATE NORMAL (NORMAL)
[2021-07-24 17:33] LABS: HYPOCHROMIA 3+
== END 2021-07-24 17:52 ==
LOC: EUO 16:08
PROVIDERS: Psychiatry & Neurology Neurology
DX: G35 Multiple sclerosis (principal); Z79.899 Other long term (current) drug therapy
CPT/HCPCS: J2323; J7050

== ENCOUNTER 2021-08-21 16:02 | Outpatient (CLI) | payer OTHER ==
[~2021-08-21] VITALS: Ht 175.3 cm; Wt 65.2 kg
[2021-08-21 16:37] LABS: MEAN CELL VOLUME 84 fl (80.0-100.0); MEAN CORPUSCULAR HEMOGLOBIN 26 pg (27.0-31.0); MEAN CORPUSCULAR HGB CONC 31 g/dl (33.0-37.0); MEAN PLATELET VOLUME 11.2 fl (7.4-10.4); PLATELET COUNT 274 K/mm3 (130-400); RED BLOOD COUNT 3.83 M/mm3 (4.10-5.30); REDCELL DISTRIBUTION WIDTH-CV 14.3 % (11.5-14.5)
[2021-08-21 16:43] LABS: HEMATOCRIT 32.2 % (37.0-47.0)
[2021-08-21 16:44] LABS: ALBUMIN 4.4 gm/dL (3.5-5.0); BILIRUBIN,TOTAL 0.6 mg/dL (0.2-1.2); CALCIUM 8.9 mg/dL (8.4-10.2); CREATININE, serum 0.78 mg/dL (0.57-1.11); POTASSIUM 3.9 mmol/L (3.5-4.5); TOTAL PROTEIN 7.6 gm/dL (6.2-8.1)
[2021-08-21 16:59] LABS: BAND 1 % (0-10); EOSINOPHIL 2 % (0-4); LYMPHOCYTE 47 % (20.0-51.0); NEUTROPHILS 36 % (42.0-75.2); PLATELET ESTIMATE NORMAL (NORMAL)
[2021-08-21 17:29] VITALS: BP 142/83; PULSE 59; TEMP 98.4
== END 2021-08-21 18:09 | disposition home or self-care (01) ==
LOC: EUO 16:02
PROVIDERS: Psychiatry & Neurology Neurology
DX: G35 Multiple sclerosis (principal)
CPT/HCPCS: J2323; J7050

== ENCOUNTER 2021-09-18 15:51 | Outpatient (CLI) | payer OTHER ==
[~2021-09-18] VITALS: Ht 175.3 cm; Wt 65.1 kg
[2021-09-18 16:12] LABS: HEMOGLOBIN 10.2 g/dl (12.5-16.0); MEAN CELL VOLUME 81 fl (80.0-100.0); MEAN CORPUSCULAR HEMOGLOBIN 25 pg (27-31); MEAN CORPUSCULAR HGB CONC 31 g/dl (33.0-37.0); MEAN PLATELET VOLUME 10.4 fl (7.4-10.4); PLATELET COUNT 321 K/mm3 (130-400); RED BLOOD COUNT 4.09 M/mm3 (4.10-5.30); REDCELL DISTRIBUTION WIDTH-CV 14.5 % (11.5-14.5)
[2021-09-18 16:14] LABS: HEMATOCRIT 33.1 % (37.0-47.0)
[2021-09-18 16:29] LABS: BILIRUBIN,TOTAL 1.1 mg/dL (0.2-1.2); CALCIUM 9.2 mg/dL (8.4-10.2); CREATININE, serum 0.74 mg/dL (0.57-1.11); POTASSIUM 3.8 mmol/L (3.5-4.5); TOTAL PROTEIN 7.3 gm/dL (6.2-8.1)
[2021-09-18 16:31] LABS: EOSINOPHIL 3 % (0-4); LYMPHOCYTE 35 % (20.0-51.0); NEUTROPHILS 48 % (42.0-75.2)
[2021-09-18 16:32] LABS: SCHISTOCYTES 1+
[2021-09-18 16:33] LABS: HYPOCHROMIA 3+; PLATELET ESTIMATE NORMAL (NORMAL)
[2021-09-18 16:41] VITALS: BP 134/86; PULSE 69; TEMP 97.9
[2021-09-19 08:07] LABS: PATHOLOGY DIFF REVIEW OK +
== END 2021-09-18 18:41 | disposition home or self-care (01) ==
LOC: EUO 15:51
PROVIDERS: Psychiatry & Neurology Neurology
DX: G35 Multiple sclerosis (principal)
CPT/HCPCS: J2323; J7050

== ENCOUNTER 2021-10-16 16:15 | Outpatient (CLI) | payer OTHER ==
[~2021-10-16] VITALS: Ht 175.3 cm; Wt 66.9 kg
[2021-10-16 16:44] LABS: MEAN CELL VOLUME 82 fl (80.0-100.0); MEAN CORPUSCULAR HGB CONC 30 g/dl (33.0-37.0); PLATELET COUNT 260 K/mm3 (130-400); RED BLOOD COUNT 3.81 M/mm3 (4.10-5.30); REDCELL DISTRIBUTION WIDTH-CV 15.1 % (11.5-14.5)
[2021-10-16 16:50] LABS: HEMATOCRIT 31.2 % (37.0-47.0); HEMOGLOBIN 9.2 g/dl (12.5-16.0); MEAN CORPUSCULAR HEMOGLOBIN 24 pg (27-31)
[2021-10-16 16:59] LABS: ALBUMIN 3.9 gm/dL (3.5-5.0); BILIRUBIN,TOTAL 0.5 mg/dL (0.2-1.2); CALCIUM 8.6 mg/dL (8.4-10.2); CREATININE, serum 0.77 mg/dL (0.57-1.11); POTASSIUM 3.8 mmol/L (3.5-4.5); TOTAL PROTEIN 7.3 gm/dL (6.2-8.1)
[2021-10-16 17:41] LABS: EOSINOPHIL 3 % (0-4); LYMPHOCYTE 53 % (20.0-51.0); NEUTROPHILS 29 % (42.0-75.2)
[2021-10-16 18:17] VITALS: BP 129/73; PULSE 59; TEMP 97.9
== END 2021-10-16 18:30 | disposition home or self-care (01) ==
LOC: EUO 16:15
PROVIDERS: Psychiatry & Neurology Neurology
DX: G35 Multiple sclerosis (principal)
CPT/HCPCS: J2323; J7050

== ENCOUNTER 2021-12-18 16:14 | Outpatient (CLI) | payer OTHER ==
[~2021-12-18] VITALS: Ht 175.3 cm; Wt 66.8 kg
[2021-12-18 16:32] LABS: MEAN CELL VOLUME 79 fl (80.0-100.0); MEAN CORPUSCULAR HGB CONC 30 g/dl (33.0-37.0); MEAN PLATELET VOLUME 10.7 fl (7.4-10.4); PLATELET COUNT 315 K/mm3 (130-400); RED BLOOD COUNT 4.07 M/mm3 (4.10-5.30); REDCELL DISTRIBUTION WIDTH-CV 17.2 % (11.5-14.5)
[2021-12-18 16:37] LABS: HEMATOCRIT 32.3 % (37.0-47.0); HEMOGLOBIN 9.6 g/dl (12.5-16.0); MEAN CORPUSCULAR HEMOGLOBIN 24 pg (27-31)
[2021-12-18 16:49] LABS: ALBUMIN 4.3 gm/dL (3.5-5.0); BILIRUBIN,TOTAL 0.6 mg/dL (0.2-1.2); CALCIUM 9.2 mg/dL (8.4-10.2); CREATININE, serum 0.81 mg/dL (0.57-1.11); POTASSIUM 3.7 mmol/L (3.5-4.5)
[2021-12-18 17:13] LABS: BAND 4 % (0-10); EOSINOPHIL 3 % (0-4); LYMPHOCYTE 32 % (20.0-51.0); NEUTROPHILS 45 % (42.0-75.2); NUCLEATED RED BLOOD CELL 1 (0-6); PLATELET ESTIMATE NORMAL (NORMAL)
[2021-12-18 17:14] VITALS: BP 112/60; PULSE 60; TEMP 98.9
[2021-12-18 17:15] LABS: HYPOCHROMIA 3+; MICROCYTOSIS 1+
[2021-12-18 17:16] LABS: ANISOCYTOSIS 1+
== END 2021-12-18 18:15 ==
LOC: EUO 16:14
PROVIDERS: Psychiatry & Neurology Neurology
DX: G35 Multiple sclerosis (principal)
CPT/HCPCS: J2323; J7050

== ENCOUNTER 2022-01-15 07:57 | Outpatient (CLI) | payer OTHER ==
[~2022-01-15] VITALS: Ht 175.3 cm; Wt 67.3 kg
[~2022-01-15 07:57] MED LIST changes: -MULTIPLE VITAMI1 CAP PO; +MULTIPLE VITAMI1 TA5 PO
[2022-01-15 16:37] LABS: MEAN CELL VOLUME 79 fl (80.0-100.0); MEAN CORPUSCULAR HGB CONC 30 g/dl (33.0-37.0); MEAN PLATELET VOLUME 10.4 fl (7.4-10.4); PLATELET COUNT 334 K/mm3 (130-400); RED BLOOD COUNT 4.02 M/mm3 (4.10-5.30); REDCELL DISTRIBUTION WIDTH-CV 16.4 % (11.5-14.5)
[2022-01-15 16:39] LABS: HEMATOCRIT 31.9 % (37.0-47.0); HEMOGLOBIN 9.4 g/dl (12.5-16.0); MEAN CORPUSCULAR HEMOGLOBIN 23 pg (27-31)
[2022-01-15 16:43] VITALS: BP 125/68; PULSE 54; TEMP 98.6
[2022-01-15 17:04] LABS: CREATININE, serum 0.74 mg/dL (0.57-1.11); TOTAL PROTEIN 7.2 gm/dL (6.2-8.1)
[2022-01-15 17:23] LABS: ANISOCYTOSIS 1+; BAND 1 % (0-10); LYMPHOCYTE 56 % (20.0-51.0); MICROCYTOSIS 1+; NEUTROPHILS 35 % (42.0-75.2)
[2022-01-15 17:24] LABS: HYPOCHROMIA 1+; OVALOCYTES 1+; PLATELET ESTIMATE NORMAL (NORMAL)
[2022-01-15 17:53] LABS: BILIRUBIN,TOTAL 0.7 mg/dL (0.2-1.2)
== END 2022-01-15 18:45 | disposition home or self-care (01) ==
LOC: EUO 07:57
PROVIDERS: Psychiatry & Neurology Neurology
DX: G35 Multiple sclerosis (principal)
CPT/HCPCS: J2323; J7050

== ENCOUNTER 2022-02-12 16:10 | Outpatient (CLI) | payer OTHER ==
[~2022-02-12] VITALS: Ht 175.3 cm; Wt 66.0 kg
[2022-02-12 16:15] VITALS: BP 111/69; PULSE 70; TEMP 98.5
[2022-02-12 16:31] LABS: MEAN CELL VOLUME 78 fl (80.0-100.0); MEAN CORPUSCULAR HGB CONC 29 g/dl (33.0-37.0); MEAN PLATELET VOLUME 10.4 fl (7.4-10.4); PLATELET COUNT 417 K/mm3 (130-400); RED BLOOD COUNT 4.34 M/mm3 (4.10-5.30); REDCELL DISTRIBUTION WIDTH-CV 16.1 % (11.5-14.5)
[2022-02-12 16:38] LABS: HEMOGLOBIN 9.9 g/dl (12.5-16.0); MEAN CORPUSCULAR HEMOGLOBIN 23 pg (27-31)
[2022-02-12 16:50] LABS: ALBUMIN 3.7 gm/dL (3.5-5.0); BILIRUBIN,TOTAL 0.5 mg/dL (0.2-1.2); CALCIUM 9.3 mg/dL (8.4-10.2); CREATININE, serum 0.78 mg/dL (0.57-1.11); POTASSIUM 3.6 mmol/L (3.5-4.5); TOTAL PROTEIN 7.6 gm/dL (6.2-8.1)
[2022-02-12 17:21] LABS: ANISOCYTOSIS 1+; BAND 4 % (0-10); BASOPHIL 1 % (0-2); EOSINOPHIL 2 % (0-4); LYMPHOCYTE 36 % (20.0-51.0); NEUTROPHILS 46 % (42.0-75.2); NUCLEATED RED BLOOD CELL 1 (0-6); PLATELET ESTIMATE INCREASED (NORMAL)
[2022-02-12 17:22] LABS: HYPOCHROMIA 2+; OVALOCYTES 1+
== END 2022-02-12 18:30 | disposition home or self-care (01) ==
LOC: EUO 16:10
PROVIDERS: Psychiatry & Neurology Neurology
DX: G35 Multiple sclerosis (principal)
CPT/HCPCS: J2323; J7050

== ENCOUNTER 2022-05-14 16:50 | Outpatient (CLI) | payer OTHER ==
[~2022-05-14] VITALS: Ht 175.3 cm; Wt 62.3 kg
[2022-05-14 17:09] LABS: HEMATOCRIT 37.9 % (37.0-47.0); HEMOGLOBIN 12.6 g/dl (12.5-16.0); MEAN CELL VOLUME 88 fl (80.0-100.0); MEAN CORPUSCULAR HEMOGLOBIN 29 pg (27-31); MEAN CORPUSCULAR HGB CONC 33 g/dl (33.0-37.0); MEAN PLATELET VOLUME 10.5 fl (7.4-10.4); PLATELET COUNT 264 K/mm3 (130-400); RED BLOOD COUNT 4.32 M/mm3 (4.10-5.30); REDCELL DISTRIBUTION WIDTH-CV 17.9 % (11.5-14.5)
[2022-05-14 17:25] LABS: ALBUMIN 4.3 gm/dL (3.5-5.0); BILIRUBIN,TOTAL 0.9 mg/dL (0.2-1.2); CALCIUM 10.1 mg/dL (8.4-10.2); CREATININE, serum 0.85 mg/dL (0.57-1.11); POTASSIUM 4.1 mmol/L (3.5-4.5); TOTAL PROTEIN 7.5 gm/dL (6.2-8.1)
[2022-05-14 17:30] LABS: ANISOCYTOSIS 1+; LYMPHOCYTE 54 % (20.0-51.0); NEUTROPHILS 38 % (42.0-75.2); PLATELET ESTIMATE NORMAL (NORMAL)
[2022-05-14 17:50] VITALS: BP 112/72; PULSE 58; TEMP 97.9
--- NOTE | 2022-05-14 18:09 | NUR ---
Report to Krystal Kulkarni.
== END 2022-05-14 19:11 | disposition home or self-care (01) ==
LOC: EUO 16:50
PROVIDERS: Psychiatry & Neurology Neurology
DX: G35 Multiple sclerosis (principal)
CPT/HCPCS: J2323; J7050

== ENCOUNTER 2022-06-11 16:15 | Outpatient (CLI) | payer OTHER ==
[~2022-06-11] VITALS: Ht 175.3 cm; Wt 61.3 kg
[2022-06-11 16:32] LABS: HEMATOCRIT 37.2 % (37.0-47.0); HEMOGLOBIN 12.4 g/dl (12.5-16.0); MEAN CELL VOLUME 92 fl (80.0-100.0); MEAN CORPUSCULAR HEMOGLOBIN 31 pg (27-31); MEAN CORPUSCULAR HGB CONC 33 g/dl (33.0-37.0); MEAN PLATELET VOLUME 11.2 fl (7.4-10.4); PLATELET COUNT 235 K/mm3 (130-400); RED BLOOD COUNT 4.05 M/mm3 (4.10-5.30); REDCELL DISTRIBUTION WIDTH-CV 15.9 % (11.5-14.5)
[2022-06-11 16:47] LABS: ALBUMIN 4.2 gm/dL (3.5-5.0); BILIRUBIN,TOTAL 1.1 mg/dL (0.2-1.2); CALCIUM 9.8 mg/dL (8.4-10.2); CREATININE, serum 0.83 mg/dL (0.57-1.11); POTASSIUM 3.8 mmol/L (3.5-4.5)
[2022-06-11 16:54] VITALS: BP 121/78; PULSE 46; TEMP 98.1
[2022-06-11 17:03] VITALS: BP 147/67; PULSE 78; TEMP 100.7
[2022-06-11 17:31] LABS: BAND 4 % (0-10); LYMPHOCYTE 61 % (20.0-51.0); NEUTROPHILS 14 % (42.0-75.2)
[2022-06-11 17:32] LABS: ANISOCYTOSIS 1+; PLATELET ESTIMATE NORMAL (NORMAL)
== END 2022-06-11 18:06 | disposition home or self-care (01) ==
LOC: EUO 16:15
PROVIDERS: Psychiatry & Neurology Neurology
DX: G35 Multiple sclerosis (principal)
CPT/HCPCS: J2323; J7050

== ENCOUNTER 2022-07-10 16:17 | Outpatient (CLI) | payer OTHER ==
[2022-07-10 16:40] LABS: HEMATOCRIT 38.1 % (37.0-47.0); HEMOGLOBIN 12.4 g/dl (12.5-16.0); MEAN CELL VOLUME 93 fl (80.0-100.0); MEAN CORPUSCULAR HEMOGLOBIN 30 pg (27-31); MEAN CORPUSCULAR HGB CONC 33 g/dl (33.0-37.0); PLATELET COUNT 257 K/mm3 (130-400); RED BLOOD COUNT 4.08 M/mm3 (4.10-5.30); REDCELL DISTRIBUTION WIDTH-CV 13.5 % (11.5-14.5)
[2022-07-10 17:01] LABS: ALBUMIN 4.2 gm/dL (3.5-5.0); BILIRUBIN,TOTAL 0.7 mg/dL (0.2-1.2); CALCIUM 9.3 mg/dL (8.4-10.2); CREATININE, serum 0.79 mg/dL (0.57-1.11); POTASSIUM 3.7 mmol/L (3.5-4.5); TOTAL PROTEIN 7.3 gm/dL (6.2-8.1)
[2022-07-10 17:13] VITALS: BP 134/79; PULSE 57; TEMP 97.9
[2022-07-10 17:45] LABS: BASOPHIL 1 % (0-2); EOSINOPHIL 2 % (0-4); HYPOCHROMIA 1+; LYMPHOCYTE 50 % (20.0-51.0); NEUTROPHILS 31 % (42.0-75.2); OVALOCYTES 1+; PLATELET ESTIMATE NORMAL (NORMAL)
== END 2022-07-10 18:04 ==
LOC: EUO 16:17
PROVIDERS: Psychiatry & Neurology Neurology
DX: G35 Multiple sclerosis (principal)
CPT/HCPCS: J2323; J7050

== ENCOUNTER → 2022-11-06 | Outpatient (CLI) | payer OTHER ==
[~2022-11-06] VITALS: Ht 175.3 cm; Wt 63.5 kg
[2022-11-06 16:27] LABS: HEMATOCRIT 37.3 % (37.0-47.0); HEMOGLOBIN 11.5 g/dl (12.5-16.0); MEAN CELL VOLUME 92 fl (80.0-100.0); MEAN CORPUSCULAR HEMOGLOBIN 28 pg (27-31); MEAN CORPUSCULAR HGB CONC 31 g/dl (33.0-37.0); MEAN PLATELET VOLUME 11.3 fl (7.4-10.4); PLATELET COUNT 231 K/mm3 (130-400); RED BLOOD COUNT 4.07 M/mm3 (4.10-5.30); REDCELL DISTRIBUTION WIDTH-CV 14.3 % (11.5-14.5)
[2022-11-06 16:45] VITALS: BP 150/82; PULSE 44; TEMP 97.8
[2022-11-06 16:49] LABS: ALBUMIN 4.1 gm/dL (3.5-5.0); BILIRUBIN,TOTAL 0.5 mg/dL (0.2-1.2); CALCIUM 9.7 mg/dL (8.4-10.2); CREATININE, serum 0.75 mg/dL (0.57-1.11); POTASSIUM 3.8 mmol/L (3.5-4.5); TOTAL PROTEIN 7.7 gm/dL (6.2-8.1)
--- NOTE | 2022-11-06 17:02 | NUR ---
Report to Krystal Anand.
[2022-11-06 17:40] LABS: BAND 3 % (0-10); EOSINOPHIL 2 % (0-4); LYMPHOCYTE 59 % (20.0-51.0); NEUTROPHILS 21 % (42.0-75.2); PLATELET ESTIMATE NORMAL (NORMAL)
[2022-11-06 17:41] LABS: HYPOCHROMIA 3+
== END ==
LOC: EUO 16:00
PROVIDERS: Psychiatry & Neurology Neurology
DX: G35 Multiple sclerosis (principal)
CPT/HCPCS: J2323; J7050

== ENCOUNTER 2022-12-04 16:07 | Outpatient (CLI) | payer OTHER ==
[~2022-12-04] VITALS: Ht 175.3 cm; Wt 64.0 kg
[2022-12-04 16:37] LABS: HEMOGLOBIN 12.3 g/dl (12.5-16.0); MEAN CELL VOLUME 89 fl (80.0-100.0); MEAN CORPUSCULAR HEMOGLOBIN 28 pg (27-31); MEAN CORPUSCULAR HGB CONC 32 g/dl (33.0-37.0); MEAN PLATELET VOLUME 10.6 fl (7.4-10.4); PLATELET COUNT 252 K/mm3 (130-400); RED BLOOD COUNT 4.37 M/mm3 (4.10-5.30); REDCELL DISTRIBUTION WIDTH-CV 15.9 % (11.5-14.5)
[2022-12-04 16:50] VITALS: BP 122/64; PULSE 64; TEMP 97.9
[2022-12-04 16:55] LABS: ALBUMIN 3.9 gm/dL (3.5-5.0); BILIRUBIN,TOTAL 0.6 mg/dL (0.2-1.2); CALCIUM 9.4 mg/dL (8.4-10.2); CREATININE, serum 0.77 mg/dL (0.57-1.11); POTASSIUM 4.1 mmol/L (3.5-4.5); TOTAL PROTEIN 7.2 gm/dL (6.2-8.1)
[2022-12-04 17:04] LABS: BAND 3 % (0-10); LYMPHOCYTE 46 % (20.0-51.0); NEUTROPHILS 39 % (42.0-75.2); NUCLEATED RED BLOOD CELL 1 (0-6)
[2022-12-04 17:08] LABS: HYPOCHROMIA 2+
[2022-12-04 17:10] LABS: ANISOCYTOSIS 1+; PLATELET ESTIMATE NORMAL (NORMAL)
== END 2022-12-04 18:15 | disposition home or self-care (01) ==
LOC: EUO 16:07
PROVIDERS: Psychiatry & Neurology Neurology
DX: G35 Multiple sclerosis (principal)
CPT/HCPCS: J2323; J7050

== ENCOUNTER 2023-01-29 17:51 | Outpatient (CLI) | payer OTHER ==
[~2023-01-29] VITALS: Ht 175.3 cm; Wt 63.0 kg
[2023-01-29 17:09] VITALS: BP 122/79; PULSE 60; TEMP 98.6
[2023-01-29 17:12] LABS: HEMATOCRIT 37.1 % (37.0-47.0); HEMOGLOBIN 11.9 g/dl (12.5-16.0); MEAN CELL VOLUME 89 fl (80.0-100.0); MEAN CORPUSCULAR HEMOGLOBIN 29 pg (27-31); MEAN CORPUSCULAR HGB CONC 32 g/dl (33.0-37.0); MEAN PLATELET VOLUME 10.8 fl (7.4-10.4); PLATELET COUNT 257 K/mm3 (130-400); RED BLOOD COUNT 4.18 M/mm3 (4.10-5.30); REDCELL DISTRIBUTION WIDTH-CV 16.2 % (11.5-14.5)
[2023-01-29 17:45] LABS: ALBUMIN 4.3 gm/dL (3.5-5.0); BILIRUBIN,TOTAL 0.8 mg/dL (0.2-1.2); CALCIUM 9.9 mg/dL (8.4-10.2); CREATININE, serum 0.88 mg/dL (0.57-1.11); POTASSIUM 3.9 mmol/L (3.5-4.5); TOTAL PROTEIN 7.4 gm/dL (6.2-8.1)
[2023-01-29 18:15] LABS: ANISOCYTOSIS 1+; BAND 4 % (0-10); EOSINOPHIL 1 % (0-4); LYMPHOCYTE 64 % (20.0-51.0); NEUTROPHILS 24 % (42.0-75.2); OVALOCYTES 1+; PLATELET ESTIMATE NORMAL (NORMAL)
--- NOTE | 2023-01-29 18:40 | NUR ---
pt discharged at approx 1900. she tolerated Tysabri infusion well and her wbc count was wnl. pt's vs remained wnl for infusion and pt tolerated po food and fluids. she ambulated independently upon discharge. pt was free from concerns and complaints at time of discharge.
== END 2023-01-29 18:55 | disposition home or self-care (01) ==
LOC: EUO 17:51
PROVIDERS: Psychiatry & Neurology Neurology
DX: G35 Multiple sclerosis (principal)
CPT/HCPCS: J2323; J7050

== ENCOUNTER 2023-05-29 16:34 | Outpatient (CLI) | payer OTHER ==
[~2023-05-29] VITALS: Ht 175.3 cm; Wt 60.6 kg
[~2023-05-29 16:34] MED LIST changes: +COSOPT 2%-0.5%10 ML OU
[2023-05-29 16:52] LABS: HEMOGLOBIN 11.4 g/dl (12.5-16.0); MEAN CELL VOLUME 95 fl (80.0-100.0); MEAN CORPUSCULAR HEMOGLOBIN 32 pg (27-31); MEAN CORPUSCULAR HGB CONC 34 g/dl (33.0-37.0); PLATELET COUNT 174 K/mm3 (130-400); RED BLOOD COUNT 3.56 M/mm3 (4.10-5.30); REDCELL DISTRIBUTION WIDTH-CV 14.8 % (11.5-14.5)
[2023-05-29 16:57] LABS: HEMATOCRIT 33.8 % (37.0-47.0)
[2023-05-29 17:16] LABS: ALBUMIN 3.9 gm/dL (3.5-5.0); BILIRUBIN,TOTAL 0.8 mg/dL (0.2-1.2); CALCIUM 9.2 mg/dL (8.4-10.2); CREATININE, serum 0.87 mg/dL (0.57-1.11); POTASSIUM 4.6 mmol/L (3.5-4.5); TOTAL PROTEIN 6.9 gm/dL (6.2-8.1)
[2023-05-29 17:34] VITALS: BP 120/69; BP 420/69; PULSE 53; TEMP 98
[2023-05-29 17:48] LABS: LYMPHOCYTE 56 % (20.0-51.0); NEUTROPHILS 30 % (42.0-75.2)
[2023-05-29 17:49] LABS: PLATELET ESTIMATE NORMAL (NORMAL)
== END 2023-05-29 18:30 | disposition home or self-care (01) ==
LOC: EUO 16:34
PROVIDERS: Nurse Practitioner
DX: G35 Multiple sclerosis (principal)
CPT/HCPCS: J2323

== ENCOUNTER 2023-07-24 16:34 | Outpatient (CLI) | payer OTHER ==
[~2023-07-24] VITALS: Ht 175.3 cm; Wt 60.4 kg
[2023-07-24 16:58] LABS: MEAN CELL VOLUME 97 fl (80.0-100.0); MEAN CORPUSCULAR HEMOGLOBIN 32 pg (27-31); MEAN CORPUSCULAR HGB CONC 33 g/dl (33.0-37.0); MEAN PLATELET VOLUME 10.9 fl (7.4-10.4); PLATELET COUNT 244 K/mm3 (130-400); RED BLOOD COUNT 4.33 M/mm3 (4.10-5.30); REDCELL DISTRIBUTION WIDTH-CV 13.2 % (11.5-14.5)
[2023-07-24 17:13] LABS: ALBUMIN 4.3 gm/dL (3.5-5.0); BILIRUBIN,TOTAL 0.7 mg/dL (0.2-1.2); CREATININE, serum 0.83 mg/dL (0.57-1.11); POTASSIUM 3.6 mmol/L (3.5-4.5); TOTAL PROTEIN 8.3 gm/dL (6.2-8.1)
[2023-07-24 17:28] VITALS: BP 165/76; PULSE 65; TEMP 98.5
[2023-07-24 17:53] LABS: BAND 1 % (0-10); LYMPHOCYTE 43 % (20.0-51.0); NEUTROPHILS 50 % (42.0-75.2); PLATELET ESTIMATE NORMAL (NORMAL)
--- NOTE | 2023-07-24 18:28 | NUR ---
[facility] pt tolerated po fluids and vital signs remained wnl throughout infusion. pt IV discontinued and pt free from acute concerns and complaints upon discharge.
== END 2023-07-24 18:29 | disposition home or self-care (01) ==
LOC: EUO 16:34
PROVIDERS: Nurse Practitioner
DX: G35 Multiple sclerosis (principal); Z51.81 Encounter for therapeutic drug level monitoring
CPT/HCPCS: J2323

== ENCOUNTER 2023-08-21 16:35 | Outpatient (CLI) | payer OTHER ==
[~2023-08-21] VITALS: Ht 175.3 cm; Wt 61.1 kg
[2023-08-21 17:01] LABS: HEMATOCRIT 41.5 % (37.0-47.0); HEMOGLOBIN 13.6 g/dl (12.5-16.0); MEAN CELL VOLUME 96 fl (80.0-100.0); MEAN CORPUSCULAR HEMOGLOBIN 32 pg (27-31); MEAN CORPUSCULAR HGB CONC 33 g/dl (33.0-37.0); MEAN PLATELET VOLUME 11.1 fl (7.4-10.4); PLATELET COUNT 201 K/mm3 (130-400); RED BLOOD COUNT 4.32 M/mm3 (4.10-5.30); REDCELL DISTRIBUTION WIDTH-CV 12.6 % (11.5-14.5)
[2023-08-21 17:15] LABS: ALBUMIN 4.2 gm/dL (3.5-5.0); BILIRUBIN,TOTAL 0.9 mg/dL (0.2-1.2); CALCIUM 9.9 mg/dL (8.4-10.2); CREATININE, serum 0.75 mg/dL (0.57-1.11); TOTAL PROTEIN 7.5 gm/dL (6.2-8.1)
[2023-08-21 17:20] LABS: BAND 4 % (0-10); EOSINOPHIL 1 % (0-4); LYMPHOCYTE 50 % (20.0-51.0); NEUTROPHILS 33 % (42.0-75.2); NUCLEATED RED BLOOD CELL 3 (0-6); PLATELET ESTIMATE NORMAL (NORMAL)
[2023-08-21 17:25] VITALS: BP 143/62; PULSE 71; TEMP 98.3
== END 2023-08-21 18:35 | disposition home or self-care (01) ==
LOC: EUO 16:35
PROVIDERS: Nurse Practitioner
DX: G35 Multiple sclerosis (principal)
CPT/HCPCS: J2323

== ENCOUNTER 2023-09-25 15:59 | Outpatient (CLI) | payer OTHER ==
[~2023-09-25] VITALS: Ht 175.3 cm; Wt 61.6 kg
[2023-09-25 16:26] LABS: HEMATOCRIT 43.7 % (37.0-47.0); HEMOGLOBIN 14.6 g/dl (12.5-16.0); MEAN CELL VOLUME 96 fl (80.0-100.0); MEAN CORPUSCULAR HEMOGLOBIN 32 pg (27-31); MEAN CORPUSCULAR HGB CONC 33 g/dl (33.0-37.0); MEAN PLATELET VOLUME 11.5 fl (7.4-10.4); PLATELET COUNT 219 K/mm3 (130-400); RED BLOOD COUNT 4.55 M/mm3 (4.10-5.30); REDCELL DISTRIBUTION WIDTH-CV 12.8 % (11.5-14.5)
[2023-09-25 16:58] VITALS: BP 138/80; PULSE 74; TEMP 99
[2023-09-25 17:31] LABS: EOSINOPHIL 3 % (0-4); LYMPHOCYTE 50 % (20.0-51.0); NEUTROPHILS 34 % (42.0-75.2); PLATELET ESTIMATE NORMAL (NORMAL)
[2023-09-25 17:35] LABS: ALBUMIN 4.1 gm/dL (3.5-5.0); BILIRUBIN,TOTAL 1.3 mg/dL (0.2-1.2); CALCIUM 9.5 mg/dL (8.4-10.2); CREATININE, serum 0.78 mg/dL (0.57-1.11); POTASSIUM 3.8 mmol/L (3.5-4.5); TOTAL PROTEIN 7.5 gm/dL (6.2-8.1)
== END 2023-09-25 18:18 | disposition home or self-care (01) ==
LOC: EUO 15:59
PROVIDERS: Psychiatry & Neurology Neurology
DX: G35 Multiple sclerosis (principal)
CPT/HCPCS: J2323

== ENCOUNTER 2024-01-22 14:46 | Outpatient (CLI) | payer OTHER ==
[~2024-01-22] VITALS: Ht 175.3 cm; Wt 64.0 kg
[2024-01-22 12:15] VITALS: BP 132/52; PULSE 55
--- NOTE | 2024-01-22 12:15 | NUR ---
pt is awake, talking, no c/o pain, call light in reach, sips on water
[2024-01-22 12:30] VITALS: BP 125/50; PULSE 56
[2024-01-22 12:45] VITALS: BP 147/66; PULSE 55
--- NOTE | 2024-01-22 12:45 | NUR ---
pt sits up in bed, takes snack and drink, watches tv, no c/o
[2024-01-22 13:00] VITALS: BP 149/78; PULSE 50
--- NOTE | 2024-01-22 13:15 | NUR ---
up to b/r to void, gait steady, iv d'cd intact. pt sits on side of bed and dressed. uncle/guardian here, reviewed discharge inst. with them on moderate sedation precautions and followup and no med changes, Uncle states talked with Dr Gilliam, Pt was discharged at 1330 with family via w/c, to lobby and was going to cafeteria to eat
[~2024-01-22 14:46] MED LIST changes: +VITAMIN D 50,1.25 MG PO
[2024-01-22 15:16] LABS: HEMOGLOBIN 11.9 g/dl (12.5-16.0); MEAN CELL VOLUME 94 fl (80.0-100.0); MEAN CORPUSCULAR HEMOGLOBIN 30 pg (27-31); MEAN CORPUSCULAR HGB CONC 32 g/dl (33.0-37.0); MEAN PLATELET VOLUME 11.4 fl (7.4-10.4); PLATELET COUNT 210 K/mm3 (130-400); RED BLOOD COUNT 3.93 M/mm3 (4.10-5.30); REDCELL DISTRIBUTION WIDTH-CV 14.3 % (11.5-14.5)
[2024-01-22 15:18] LABS: HEMATOCRIT 36.9 % (37.0-47.0)
[2024-01-22 15:33] LABS: ALBUMIN 3.7 g/dL (3.5-5.0); BILIRUBIN,TOTAL 0.7 mg/dL (0.2-1.2); CALCIUM 9.8 mg/dL (8.4-10.2); CREATININE, serum 0.79 mg/dL (0.57-1.11); POTASSIUM 3.9 mEq/L (3.5-4.5); TOTAL PROTEIN 7.1 g/dl (6.2-8.1)
[2024-01-22 15:46] LABS: EOSINOPHIL 3 % (0-4); LYMPHOCYTE 51 % (20.0-51.0); NEUTROPHILS 25 % (42.0-75.2)
[2024-01-22 16:15] VITALS: BP 117/74; PULSE 74; TEMP 98.3
[2024-01-22] MEDS ORDERED: NS IV ONE (16:15)
[2024-01-22] MEDS ORDERED: NATALIZUMAB IV ONE (16:15)
[2024-01-23 08:28] LABS: PATHOLOGY DIFF REVIEW OK +
== END 2024-01-22 17:30 ==
LOC: EUO 14:46
PROVIDERS: Psychiatry & Neurology Neurology
DX: G35 Multiple sclerosis (principal)
CPT/HCPCS: J2323

== ENCOUNTER 2024-04-30 16:06 | Outpatient (CLI) | payer OTHER ==
[~2024-04-30] VITALS: Ht 175.3 cm; Wt 66.0 kg
[2024-04-30 16:26] LABS: HEMOGLOBIN 11.2 g/dl (12.5-16.0); MEAN CELL VOLUME 91 fl (80.0-100.0); MEAN CORPUSCULAR HEMOGLOBIN 29 pg (27-31); MEAN CORPUSCULAR HGB CONC 32 g/dl (33.0-37.0); MEAN PLATELET VOLUME 11.3 fl (7.4-10.4); PLATELET COUNT 226 K/mm3 (130-400); RED BLOOD COUNT 3.81 M/mm3 (4.10-5.30); REDCELL DISTRIBUTION WIDTH-CV 14.8 % (11.5-14.5)
[2024-04-30 16:37] LABS: HEMATOCRIT 34.6 % (37.0-47.0)
[2024-04-30 16:40] LABS: CALCIUM 9.2 mg/dL (8.4-10.2); CREATININE, serum 0.77 mg/dL (0.57-1.11); POTASSIUM 3.6 mEq/L (3.5-4.5)
[2024-04-30 16:51] VITALS: BP 154/73; PULSE 46; TEMP 98.5
[2024-04-30 16:58] LABS: BAND 10 % (0-10); EOSINOPHIL 6 % (0-4); LYMPHOCYTE 34 % (20.0-51.0); METAMYELOCYTE 2 % (0-0); NEUTROPHILS 40 % (42.0-75.2)
[2024-04-30] MEDS ORDERED: NS IV SCH (17:30)
[2024-04-30] MEDS ORDERED: NATALIZUMAB IV SCH (17:30)
--- NOTE | 2024-04-30 18:07 | NUR ---
PT TOLERATES INFUSION WELL. VS REMAIN WITHIN NORMAL LIMITS AND PT FREE FROM ACUTE CONCERNS AND COMPLAINTS. IV DISCONTINUED UPON DISCHARGE AND PT AMBULATED INDEPENDENTLY TO MAIN LOBBY. NEXT APPOINTMENT SCHEDULED
== END 2024-04-30 18:22 | disposition home or self-care (01) ==
LOC: EUO 16:06
PROVIDERS: Nurse Practitioner
DX: Z51.81 Encounter for therapeutic drug level monitoring (principal); G35 Multiple sclerosis
CPT/HCPCS: J2323

== ENCOUNTER 2024-06-25 16:58 | Outpatient (CLI) | payer OTHER ==
[~2024-06-25] VITALS: Ht 175.3 cm; Wt 62.2 kg
[2024-06-25 16:34] LABS: HEMOGLOBIN 11.4 g/dl (12.5-16.0); MEAN CELL VOLUME 90 fl (80.0-100.0); MEAN CORPUSCULAR HEMOGLOBIN 30 pg (27-31); MEAN CORPUSCULAR HGB CONC 33 g/dl (33.0-37.0); MEAN PLATELET VOLUME 10.7 fl (7.4-10.4); PLATELET COUNT 220 K/mm3 (130-400); RED BLOOD COUNT 3.79 M/mm3 (4.10-5.30)
[2024-06-25 16:39] LABS: HEMATOCRIT 34.2 % (37.0-47.0)
[2024-06-25 16:53] LABS: ALBUMIN 3.9 g/dL (3.5-5.0); BILIRUBIN,TOTAL 0.8 mg/dL (0.2-1.2); CALCIUM 9.1 mg/dL (8.4-10.2); CREATININE, serum 0.72 mg/dL (0.57-1.11); POTASSIUM 3.8 mEq/L (3.5-4.5); TOTAL PROTEIN 6.7 g/dl (6.2-8.1)
[2024-06-25 17:10] LABS: BASOPHIL 2 % (0-2); EOSINOPHIL 1 % (0-4); LYMPHOCYTE 62 % (20.0-51.0); NEUTROPHILS 21 % (42.0-75.2); PLATELET ESTIMATE NORMAL (NORMAL)
[2024-06-25 17:30] VITALS: BP 161/53; PULSE 48; TEMP 98.6
[2024-06-25] MEDS ORDERED: NS IV SCH (17:45)
[2024-06-25] MEDS ORDERED: NATALIZUMAB IV SCH (17:45)
--- NOTE | 2024-06-25 18:32 | NUR ---
PT TOLERATED INFUSION WELL. VS REMAINED WITHIN NORMAL LIMITS. IV DISCONTINUED UPON DISCHARGE. PT REMAINED FREE FROM ACUTE CONCERNS AND COMPLAINTS. PT AMBULATED TO [facility] UPON DISCHARGE. NEXT APPOINTMENT SCHEDULED.
== END 2024-06-25 18:45 | disposition home or self-care (01) ==
LOC: EUO 16:58
PROVIDERS: Psychiatry & Neurology Neurology
DX: G35 Multiple sclerosis (principal)
CPT/HCPCS: J2323

== ENCOUNTER 2024-07-23 16:29 | Outpatient (CLI) | payer OTHER ==
[~2024-07-23] VITALS: Ht 175.3 cm; Wt 61.0 kg
[2024-07-23 16:54] LABS: HEMOGLOBIN 11.6 g/dl (12.5-16.0); MEAN CELL VOLUME 90 fl (80.0-100.0); MEAN CORPUSCULAR HEMOGLOBIN 30 pg (27-31); MEAN CORPUSCULAR HGB CONC 33 g/dl (33.0-37.0); MEAN PLATELET VOLUME 11.1 fl (7.4-10.4); PLATELET COUNT 230 K/mm3 (130-400); RED BLOOD COUNT 3.92 M/mm3 (4.10-5.30); REDCELL DISTRIBUTION WIDTH-CV 14.7 % (11.5-14.5)
[2024-07-23 16:56] LABS: HEMATOCRIT 35.2 % (37.0-47.0)
[2024-07-23 17:13] LABS: ALBUMIN 3.9 g/dL (3.5-5.0); BILIRUBIN,TOTAL 0.8 mg/dL (0.2-1.2); CALCIUM 9.2 mg/dL (8.4-10.2); CREATININE, serum 0.79 mg/dL (0.57-1.11); POTASSIUM 3.8 mEq/L (3.5-4.5); TOTAL PROTEIN 7.1 g/dl (6.2-8.1)
[2024-07-23 17:22] LABS: EOSINOPHIL 2 % (0-4); LYMPHOCYTE 54 % (20.0-51.0); NEUTROPHILS 31 % (42.0-75.2); NUCLEATED RED BLOOD CELL 1 (0-6)
[2024-07-23 17:23] LABS: ANISOCYTOSIS 1+; PLATELET ESTIMATE NORMAL (NORMAL); POLYCHROMASIA 1+
[2024-07-23] MEDS ORDERED: NS IV SCH (18:15)
[2024-07-23] MEDS ORDERED: NATALIZUMAB IV SCH (18:15)
[2024-07-23 18:41] VITALS: BP 125/78; PULSE 61; TEMP 98.7
== END 2024-07-23 19:03 | disposition home or self-care (01) ==
LOC: EUO 16:29
PROVIDERS: Nurse Practitioner
DX: Z51.81 Encounter for therapeutic drug level monitoring (principal); G35 Multiple sclerosis
CPT/HCPCS: J2323